=== PATIENT | male | born 1995 | race Caucasian/White ===

== ENCOUNTER 2020-12-09 10:39 | Emergency (ER) | payer OTHER, SELFPAY ==
[2020-12-09 10:55] VITALS: BP 132/84; PULSE 96; RESP 18; TEMP 37.3; O2SAT 100
--- NOTE | 2020-12-09 11:23 | ED.URI ---
HPI - URI/Sore Throat General Chief Complaint: Upper Respiratory Infection Stated Complaint: fever History of Present Illness HPI Narrative: Patient states that he has been feeling really tired and has been having a fever for the past 3-4 days and he has been having chills. He has a headache and feeling tired. Patient denies feeling nauseasted and or dirrhea. Patient has no othere symptoms no sob, no sore throat just fever and weakness and being tired. Related Data Allergies Allergy/AdvReac Type Severity Reaction Status Date / Time cephalexin Allergy Unknown Hives Verified 12/09/20 10:59 erythromycin base Allergy Unknown Hives Verified 12/09/20 10:59 Review of Systems Review of Systems: Narrative: CONSTITUTIONAL: complains of fever, chills, or sweats. EYES: Denies visual changes, redness, or discharge. ENT: Denies rhinorrhea, congestion, sore throat, or otalgia. CARDIOVASCULAR:Denies chest pain, palpitations, or edema. RESPIRATORY: Denies cough or dyspnea. GASTROINTESTINAL: Denies abdominal pain, nausea, vomiting, or diarrhea. GENITOURINARY: Denies dysuria or hematuria. SKIN:[Denies rash or itching. MUSCULOSKELETAL:Denies back pain, joint pain, or myalgia. NEUROLOGIC: Denies headache, numbness, or okay reports weakness. PSYCHIATRIC:Denies anxiety or depression PMFSH Social History Social History Smoking status: Smoker, status unknown Alcohol intake: never Gender identity (if verbalized by the patient): Male Comments At time as signature, I have reviewed and agree with nursing past medical, social, surgical and family history. Please see nursing chart for further information. There is no relevant family history pertinent to the presenting complaint. Exam Narrative: Exam Narrative: GENERAL:ILL -appearing, well-nourished, and in no acute distress. HEAD:Normocephalic, atraumatic. EYES: PERRLA and EOMI. ENT: Nares clear, no rhinorrhea or epistaxis. Mucous membranes moist. Pharyngeal erythema NECK: Supple. CHEST: Clear to auscultation. No respiratory distress. HEART: Regular rate and rhythm. No murmur heard. Normal peripheral pulses. ABDOMEN: Soft, nontender, nondistended, normal active bowel sounds. EXTREMITIES: Normal range of motion. No edema. SKIN: Warm, dry, no rash. NEURO: No focal deficits. Alert and oriented x3. 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 negative covid, negative strep I reviewed Vital Signs Vital signs: Vital Signs Temperature 99.1 F 12/09/20 10:55 Pulse Rate 96 12/09/20 10:55 Respiratory Rate 18 12/09/20 10:55 Blood Pressure 132/84 12/09/20 10:55 Pulse Oximetry 100 12/09/20 10:55 Temperature 99.1 F 12/09/20 10:55 Pulse Rate 96 12/09/20 10:55 Respiratory Rate 18 12/09/20 10:55 Blood Pressure 132/84 12/09/20 10:55 Pulse Oximetry 100 12/09/20 10:55 MDM - URI/Sore Throat Differential Diagnosis Differential diagnosis: Likely upper respiratory infection, otitis media, sinusitis, viral infection, bronchitis, influenza and pharyngitis Lab Data Labs: Lab Results 12/09/20 Range/Units 11:05 POC SARS CoV-2 Ag Negative (Negative) Strep Screen Presumptive Negative *(Reference Range: Negative)* Discharge Plan Discharge Clinical Impression: Viral infection Upper respiratory infection Qualifiers: URI type: unspecified URI Qualified Code(s): J06.9 - Acute upper respiratory infection, unspecified Patient Disposition: Home, Self-Care Condition: Guarded Prognosis Instructions: Antibiotic Form, Viral Syndrome (ED) Additional Instructions: Viral illness may last between 7-12days; antibiotic is NOT recommended at this time. Recommend antihistamine such as Benadryl at night time and Claritin/Zyrtec/Coby during the day Also, recommend symptomatic treatment includes: rest, fluids, and increase humidity of the air at home. Recommend Acetaminophen or nonsteroidal anti-inflam
== END 2020-12-09 11:45 | disposition home or self-care (01) ==
PROVIDERS: Emergency Provider Nurse Practitioner Family
DX: B34.9 Viral infection, unspecified (principal); Z20.822 Contact with and (suspected) exposure to COVID-19
CPT/HCPCS: 87081; 87426; 87880; 99213; C9803; G0463

== ENCOUNTER 2020-12-23 09:03 | Emergency (ER) | payer OTHER, SELFPAY ==
[2020-12-23 09:12] VITALS: BP 114/78; PULSE 99; RESP 16; TEMP 37.4; O2SAT 99
--- NOTE | 2020-12-23 10:07 | ED.URI ---
HPI - URI/Sore Throat General Chief Complaint: Upper Respiratory Infection Stated Complaint: Fever/cough/chills Time Seen by Provider: 12/23/20 10:10 Source: patient Mode of arrival: ambulatory Limitations: no limitations History of Present Illness HPI Narrative: Bairon Albert is a 25-year-old male who [facility] with a fever 102, nausea, diarrhea, like cough symptoms that started this morning states that he was came here because his boss has cancer and is immunocompromised Related Data Allergies Allergy/AdvReac Type Severity Reaction Status Date / Time cephalexin Allergy Unknown Hives Verified 12/23/20 09:39 erythromycin base Allergy Unknown Hives Verified 12/23/20 09:39 Review of Systems Review of Systems: Narrative: CONSTITUTIONAL: Has fever, chills, sweats. EYES: Denies visual changes, redness, discharge. ENT: Denies rhinorrhea, has congestion, sore throat, otalgia. CARDIOVASCULAR: Denies chest pain, palpitations, edema. RESPIRATORY: Denies dyspnea, wheezing, has cough GASTROINTESTINAL: Denies abdominal pain, has nausea, vomiting, has diarrhea. GENITOURINARY: Denies dysuria, hematuria, abnormal discharge SKIN: Denies rash or itching. NEUROLOGIC: Denies numbness, or focal weakness. PSYCHIATRIC: Denies anxiety or depression. PMFSH Past Medical History Medical History No acute medical problems Family History Family History (Updated 12/23/20 @ 10:11 by Veronica Ramirez CNP) Other No acute medical problems Social History Social History (Updated 12/23/20 @ 10:11 by Veronica Ramirez CNP) Smoking status: Current some day smoker Alcohol intake: never Gender identity (if verbalized by the patient): Male Comments At time of signature, I agree with nursing past medical, surgical, social and family history. There is no relevant family history pertinent to the presenting complaint. Exam Narrative: Exam Narrative: GENERAL: This is a well-nourished, well-developed patient, in mild distress. HEAD: normocephalic, atraumatic. EYES: Sclera clear/white. Vision is grossly intact. EARS: External ears normal, . Hearing grossly intact. NOSE: External nose normal without nasal discharge, nares without redness, no rhinorrhea. THROAT: Mucous membranes moist, posterior pharynx erythema NECK: Neck supple, non-tender CARDIOVASCULAR: Tachycardic and rhythm without murmurs, gallops, or rubs. RESPIRATORY: Clear to auscultation. Breath sounds equal bilaterally. No wheezes, rales, or rhonchi. GASTROINTESTINAL: Abdomen soft, mild-tender, SKIN: warm, intact with no suspicious lesions or rash, good texture and turgor. NEURO: awake, alert, and oriented to person, place and time. There were no obvious focal neurologic abnormalities. Steady gait EXTREMITIES: Normal range of motion. BACK: Nontender without deformity Course Course Emergency Course: Patient comes with fever nausea diarrhea-like cough states feels achy, symptoms started this morning Rapid Covid is positive Started on prednisone, cough medication, Zofran Vital Signs Vital signs: Vital Signs Temperature 99.3 F 12/23/20 09:12 Pulse Rate 99 12/23/20 09:12 Respiratory Rate 16 12/23/20 09:12 Blood Pressure 114/78 12/23/20 09:12 Pulse Oximetry 99 12/23/20 09:12 Temperature 99.3 F 12/23/20 09:12 Pulse Rate 99 12/23/20 09:12 Respiratory Rate 16 12/23/20 09:12 Blood Pressure 114/78 12/23/20 09:12 Pulse Oximetry 99 12/23/20 09:12 MDM - URI/Sore Throat Differential Diagnosis Differential diagnosis: Likely upper respiratory infection, sinusitis, viral infection, pharyngitis and other (Covid) Lab Data Labs: Lab Results 12/23/20 Range/Units 09:29 POC SARS CoV-2 Ag Positive (Negative) Critical Care Time Critical Care Time Critical Care Time: No Discharge Plan Discharge Clinical Impression: COVID Patient Disposition: Home, Self-Care Conditio
== END 2020-12-23 10:23 | disposition home or self-care (01) ==
PROVIDERS: Emergency Provider Nurse Practitioner
DX: U07.1 COVID-19 (principal); F17.200 Nicotine dependence, unspecified, uncomplicated
CPT/HCPCS: 87426; 99213; C9803; G0463

== ENCOUNTER 2023-08-17 09:42 | Emergency (ER) | payer OTHER, SELFPAY ==
--- NOTE | 2023-08-17 09:48 | ED.URI ---
HPI - URI/Sore Throat General Chief Complaint: Upper Respiratory Infection Stated Complaint: fever Time Seen by Provider: 08/17/23 10:10 Source: patient and RN notes reviewed Mode of arrival: ambulatory Limitations: no limitations History of Present Illness HPI Narrative: 28-year-old male presents with concern for 4 day history of fever, body aches, chills, cough, nausea, headache, nasal congestion or rhinorrhea. Reports he taking ibuprofen. MD elicited complaint: cough and sore throat Related Data Allergies Allergy/AdvReac Type Severity Reaction Status Date / Time cephalexin Allergy Unknown Hives Verified 08/17/23 10:02 erythromycin base Allergy Unknown Hives Verified 08/17/23 10:02 Review of Systems Review of Systems: CONSTITUTIONAL: Reports malaise, chills, sweats, or fever. EYES: Denies visual changes, redness, or discharge. ENT: Reports rhinorrhea, congestion CARDIOVASCULAR: Denies chest pain, palpitations, or edema. RESPIRATORY: Reports cough. Denies dyspnea. GASTROINTESTINAL: Denies abdominal pain. Reports nausea, vomiting, diarrhea SKIN: Denies rash or itching. MUSCULOSKELETAL: Reports myalgia. NEUROLOGIC: Reports headache. All systems reviewed & are unremarkable except as noted in HPI and below PMFSH Past Medical History Medical History No acute medical problems Family History Family History (Updated 12/23/20 @ 10:11 by Veronica Ramirez, POWER SEWING MACHINE OPERATOR) Other No acute medical problems Social History Social History (Updated 12/23/20 @ 10:11 by Veronica Ramirez, BIMAL) Smoking status: Current some day smoker Alcohol intake: never Gender identity (if verbalized by the patient): Male Comments At time of signature, agree with nursing past medical, surgical, social and family history. There is no relevant family history pertinent to the presenting complaint Exam Narrative: GENERAL: Well-appearing, well-nourished, and in no acute distress. HEAD: Normocephalic EYES: PERRLA, conjunctivae clear ENT: Nares clear, turbinates edematous and erythematous, clear discharge. Mucous membranes moist. TM pearly casas with dull light reflex bilaterally; no tragal tenderness. Oropharynx not erythematous without lesions. Tonsils not enlarged and without exudate, no drooling, no hoarseness, no trismus, uvula midline. NECK: Supple. No lymphadenopathy CHEST: Clear to auscultation, breath sounds equal. No wheezing, rhonchi, rales, or stridor. No respiratory distress, speaks in full sentences. HEART: Regular rate and rhythm. No murmur heard. SKIN: Warm, dry, no rash. NEURO: Alert and oriented x3. PSYCH: Normal mood and affect Course Course Emergency Course: Patient is aware of diagnosis, understands and agrees to treatment plan. Anticipatory guidance given. Patient agrees to follow-up as directed and is aware of reasons to seek care at the emergency department. Portions of this record may have been created with voice recognition software Level of Care: Express Care Visit Vital Signs Vital signs: Vital Signs Temperature 99.9 F H 08/17/23 10:03 Pulse Rate 80 08/17/23 10:03 Respiratory Rate 16 08/17/23 10:03 Blood Pressure 128/73 08/17/23 10:03 Pulse Oximetry 100 08/17/23 10:03 Oxygen Delivery Room Air 08/17/23 10:03 Temperature 99.9 F H 08/17/23 10:03 Pulse Rate 80 08/17/23 10:03 Respiratory Rate 16 08/17/23 10:03 Blood Pressure 128/73 08/17/23 10:03 Pulse Oximetry 100 08/17/23 10:03 Oxygen Delivery Room Air 08/17/23 10:03 Reviewed. MDM - URI/Sore Throat MDM Narrative Medical decision making narrative: Differential diagnosis considered: Mo virus, strep pharyngitis, allergic rhinitis, upper respiratory tract infection, sinusitis, rhinosinusitis, nasopharyngitis. viral pharyngitis, otitis media, otitis externa, pneumonia, bronchitis, viral cough syndrome, viral syndrome, and influenza. Exam findings show
[2023-08-17 10:03] VITALS: BP 128/73; PULSE 80; RESP 16; TEMP 37.7; O2SAT 100
== END 2023-08-17 10:23 | disposition home or self-care (01) ==
PROVIDERS: Emergency Provider Nurse Practitioner
DX: J10.1 Influenza due to other identified influenza virus with other respiratory manifestations (principal); F17.200 Nicotine dependence, unspecified, uncomplicated; Z20.822 Contact with and (suspected) exposure to COVID-19
CPT/HCPCS: 87426; 87804; 99213; G0463

== ENCOUNTER 2024-02-09 16:54 | Emergency (ER) | payer OTHER, SELFPAY ==
--- NOTE | 2024-02-09 16:59 | ED.GENADULT ---
HPI - General Adult General Chief complaint: Urogenital-Male Stated complaint: sti check Time Seen by Provider: 02/09/24 16:59 Source: patient Mode of arrival: ambulatory Limitations: no limitations History of Present Illness HPI narrative: 28-year-old male patient presents to the [facility] with request for STI check. Patient states he is in a monogamous relationship with the live-in girlfriend and she was recently diagnosed with Mycoplasma genitalium and he was told he needed to get tested. Patient has no symptoms today. Denies fevers, body aches or chills. Related Data Home Medications Medication Instructions Recorded Confirmed infliximab 100 mg intravenous See Rx Instructions .Route .COMPLEX 02/09/24 02/09/24 solution (Remicade) Allergies Allergy/AdvReac Type Severity Reaction Status Date / Time cephalexin AdvReac Mild Hives Verified 02/09/24 17:00 erythromycin base AdvReac Mild Hives Verified 02/09/24 17:00 Review of Systems Review of Systems: CONSTITUTIONAL: Denies fever, chills, or sweats. EYES: Denies visual changes, redness, or discharge. ENT: Denies rhinorrhea, congestion, sore throat, or otalgia. CARDIOVASCULAR: Denies chest pain, palpitations, or edema. RESPIRATORY: Denies cough or dyspnea. GASTROINTESTINAL: Denies abdominal pain, nausea, vomiting, or diarrhea. GENITOURINARY: Denies dysuria or hematuria. SKIN: Denies rash or itching. MUSCULOSKELETAL: Denies back pain, joint pain, or myalgia. NEUROLOGIC: Denies headache, numbness, or weakness. PSYCHIATRIC: Denies anxiety or depression. [facility] Past Medical History Medical History No acute medical problems Family History Family History Other No acute medical problems Social History Social History Smoking status: Current some day smoker Alcohol intake: never Gender identity (if verbalized by the patient): Male Comments At the time of my signature I agree with nursing past medical history, surgical, social, and family history. There is no relevant family history pertinent to the presenting complaint. Exam Narrative: GENERAL: Well-appearing, well-nourished, and in no acute distress. HEAD: Normocephalic, atraumatic. EYES: PERRLA and EOMI. ENT: Nares clear, no rhinorrhea or epistaxis. Mucous membranes moist. NECK: Supple. No lymphadenopathy CHEST: Clear to auscultation. No respiratory distress. HEART: Regular rate and rhythm. No murmur heard. Normal peripheral pulses. ABDOMEN: Soft, nontender, nondistended, normal active bowel sounds. EXTREMITIES: Normal range of motion. No edema. SKIN: Warm, dry, no rash. NEURO: No focal deficits. Alert and oriented x3. Course Course Level of Care: Express Care Visit Vital Signs Vital signs: Vital Signs Temperature 36.8 C 02/09/24 17:07 Pulse Rate 71 02/09/24 17:07 Respiratory Rate 18 02/09/24 17:07 Blood Pressure 116/67 02/09/24 17:07 Pulse Oximetry 100 02/09/24 17:07 Oxygen Delivery Room Air 02/09/24 17:07 Temperature 36.8 C 02/09/24 17:07 Pulse Rate 71 02/09/24 17:07 Respiratory Rate 18 02/09/24 17:07 Blood Pressure 116/67 02/09/24 17:07 Pulse Oximetry 100 02/09/24 17:07 Oxygen Delivery Room Air 02/09/24 17:07 Vital signs reviewed. Medical Decision Making MDM Narrative Medical decision making narrative: Plan of care for today is to obtain a urine culture and send out for testing along with Trichomonas gonorrhea and chlamydia. Discussed with patient that we will go ahead and treat him today and per the CDC guidelines for the treatment of this bacteria would be a dose of doxycycline 100 mg orally 2 times a day for 7 days and moxifloxacin 400 mg orally once a day for 7 days. Discussed with him that if there is any treatment change we will call him once we
[2024-02-09 17:07] VITALS: BP 116/67; PULSE 71; RESP 18; TEMP 36.8; O2SAT 100
[2024-02-09 19:37] LABS: Trichomonas Vag PCR NOT DETECTED (NOT DETECTE)
[2024-02-09 20:01] LABS: Chlamydia trachomatis NOT DETECTED (NOT DETECTE); Neisseria gonorrhoeae PCR NOT DETECTED (NOT DETECTE)
== END 2024-02-09 17:45 | disposition home or self-care (01) ==
PROVIDERS: Emergency Provider Nurse Practitioner Family
DX: Z20.2 Contact with and (suspected) exposure to infections with a predominantly sexual mode of transmission (principal); F17.200 Nicotine dependence, unspecified, uncomplicated
CPT/HCPCS: 87086; 87491; 87591; 87661; 99213; G0463

== ENCOUNTER 2024-03-25 11:19 | Emergency (ER) | payer OTHER, SELFPAY ==
[2024-03-25 11:40] VITALS: BP 117/82; PULSE 65; RESP 16; TEMP 36.9; O2SAT 100
--- NOTE | 2024-03-25 11:54 | ED.EYEPROB ---
HPI - Eye Problem General Chief complaint: Eye Problems Stated complaint: pink eye Source: patient Mode of arrival: ambulatory Limitations: no limitations History of Present Illness HPI Narrative: 28-year-old male presented for complaint of left eye redness and irritation, onset yesterday. He removed his contact lens yesterday but reports waking this morning with even more redness and clear drainage. Reports light sensitivity. His contact lenses are to be changed monthly, with one day of rest each week. Denies significant eye pain, vision changes, purulent discharge, headache or vomiting. No treatment travel pta. chief complaint: eye pain Related Data Home Medications Medication Instructions Recorded Confirmed infliximab 100 mg intravenous See Rx Instructions .Route .COMPLEX 02/09/24 03/25/24 solution (Remicade) Allergies Allergy/AdvReac Type Severity Reaction Status Date / Time cephalexin AdvReac Mild Hives Verified 03/25/24 11:43 erythromycin base AdvReac Mild Hives Verified 03/25/24 11:43 Review of Systems Review of Systems: CONSTITUTIONAL: Denies body aches, fever, chills EYES:Endorses redness clear drainage, photophobia left eye Denies purulent drainage, FB sensation, swelling, visual changes ENT: Denies rhinorrhea, congestion, sore throat, or otalgia. CARDIOVASCULAR: Denies chest pain, palpitations RESPIRATORY: Denies cough or dyspnea. SKIN: Denies rash, itching, or wounds. NEUROLOGIC: Denies headache, numbness, tingling, or weakness. All systems reviewed & are unremarkable except as noted in HPI and below PMFSH Past Medical History Medical History No acute medical problems Family History Family History Other No acute medical problems Social History Social History Smoking status: Current some day smoker Alcohol intake: never Gender identity (if verbalized by the patient): Male Comments At time of signature, I have reviewed and agree with nursing past medical, surgical, social and family history unless otherwise noted. Please see nursing chart for further information. There is no relevant family history pertinent to the presenting complaint Exam Narrative: GENERAL: Well-appearing HEAD: Normocephalic, atraumatic. EYES: Left conjunctival injection, clear drainage; no eye lid swelling. PERRLA, EOMI. Lid eversion shows no fb. ENT: Mucous membranes pink and moist. No rhinorrhea. TMs normal bilaterally. Throat normal. Uvula midline. CHEST: Clear to auscultation. HEART: Regular rate and rhythm. SKIN: Warm, dry, no rash. Normal skin turgor. NEURO: No focal deficits. Alert and oriented x3 Course Course Emergency Course: Patient is aware of diagnosis, understands and agrees to treatment plan. Anticipatory guidance given. Patient agrees to follow-up as directed and is aware of reasons to seek care at the emergency department. Portions of this record may have been created with voice recognition software Level of Care: Express Care Visit Vital Signs Vital signs: Vital Signs Temperature 98.5 F 03/25/24 11:40 Pulse Rate 65 03/25/24 11:40 Respiratory Rate 16 03/25/24 11:40 Blood Pressure 117/82 03/25/24 11:40 Pulse Oximetry 100 03/25/24 11:40 Oxygen Delivery Room Air 03/25/24 11:40 Temperature 98.5 F 03/25/24 11:40 Pulse Rate 65 03/25/24 11:40 Respiratory Rate 16 03/25/24 11:40 Blood Pressure 117/82 03/25/24 11:40 Pulse Oximetry 100 03/25/24 11:40 Oxygen Delivery Room Air 03/25/24 11:40 Procedures FB Removal Eye Foreign Body #1: Foreign Body Removal Date: 03/25/24 Location: eye (L) Topical anesthetic used: tetracaine Evidence of corneal penetration: No Procedure performed under: other (fernando lamp) Patient tolerated p
== END 2024-03-25 12:21 | disposition home or self-care (01) ==
PROVIDERS: Emergency Provider Nurse Practitioner Family
DX: H10.9 Unspecified conjunctivitis (principal); F17.200 Nicotine dependence, unspecified, uncomplicated
CPT/HCPCS: 99213; A9270; G0463

== ENCOUNTER 2024-12-07 09:51 | Emergency (ER) | payer OTHER, SELFPAY ==
--- NOTE | ~2024-12-07 | XR_ITS ---
HISTORY: left sided low back pain with left sciatica COMPARISON: None TECHNIQUE: 4 view lumbar spine. FINDINGS: Lumbar vertebral bodies are normally aligned. There are 5 non-rib bearing lumbar vertebral bodies. Trace degenerative change at the level of L5/S1 with minimal posterior compression of the inferior ve rtebral body. Remaining disc spaces and vertebral body heights are otherwise well maintained. Grade 1 retrolisthesis of L5 onto S1 is also noted as is facet hypertrophy. Paraspinal soft tissues are unremarkable Straightening of the normal lordotic curvature is identified within the lumbar spine possibly muscula r in origin. IMPRESSION: Trace degenerative disease at the level of L5/S1, as detailed above. No acute compression fracture. Reviewed, dictated and finalized at location A.
--- NOTE | 2024-12-07 09:53 | ED.BACK ---
HPI - Back Pain/Injury General Chief Complaint: Back Pain/Injury Stated Complaint: back injury Time Seen by Provider: 12/07/24 09:53 Source: patient Mode of arrival: ambulatory Limitations: no limitations History of Present Illness HPI Narrative: Bairon is a 29 year old male patient presenting to the clinic today with c/o back pain x 1 day. He reports he was rough-housing with his daughters and throwing them on the couch and he injured his back. States the pain is to the left lower back with radiation of pain down the left leg. Pain is sharp in nature. Rates his pain currently 8/10. Did take hydrocodone last night for pain and that helped him sleep and help pain. Denies any loss of bowel or bladder. Denies any saddle anesthesia or numbness. Related Data Home Medications ?Medication ?Instructions ?Recorded ?Confirmed ?Last Taken ?Type infliximab 100 mg intravenous See Rx Instructions .Route .COMPLEX 02/09/24 03/25/24 Unknown History solution (Remicade) Allergies Allergy/AdvReac Type Severity Reaction Status Date / Time cephalexin Allergy Mild Hives Verified 12/07/24 10:04 erythromycin base Allergy Mild Hives Verified 12/07/24 10:04 Review of Systems Review of Systems: Pertinent positives per HPI. Patient denies any fever, chills, rash, headache, visual changes, dizziness, cough, runny nose, sore throat, shortness of breath, chest pain, palpitations, nausea, vomiting, diarrhea, constipation, abdominal pain, or any urinary issues. PMFSH Past Medical History Medical History No acute medical problems Family History Family History Other No acute medical problems Social History Social History Smoking status: Current some day smoker Alcohol intake: never Gender identity (if verbalized by the patient): Male Comments At the time of my signature, I reviewed and agree with the nursing past medical, surgical, social, and family history. There is no relevant family history pertinent to the patient complaint. Exam Narrative: General: Well-developed, well nourished, in no apparent distress Head: Normocephalic, atraumatic. Cardio: Regular rate and rhythm, s1 and s2 normal, no murmur appreciated. Resp: Clear to auscultation bilaterally, no rhonchi, rales, wheezing or rubs. Musculoskeletal: No deformity, non-tender to palpation over the lumbar spine, pain to the left lower paraspinous musculature/ back with movement, cautious gait and movement, muscle strength strong and equal in BLE. SLT positive at approximately 60? on the left, patellar reflexes 2/4 bilaterally, negative foot drop, cautious gait and station Course Course Emergency Course: Portions of this record may have been created with voice recognition software. Level of Care: Express Care Visit Vital Signs Vital signs: Vital Signs Temperature 36.3 C L 12/07/24 10:02 Pulse Rate 67 12/07/24 10:02 Respiratory Rate 18 12/07/24 10:02 Blood Pressure 124/84 12/07/24 10:02 Pulse Oximetry 99 12/07/24 10:02 Oxygen Delivery Room Air 12/07/24 10:02 Temperature 36.3 C L 12/07/24 10:02 Pulse Rate 67 12/07/24 10:02 Respiratory Rate 18 12/07/24 10:02 Blood Pressure 124/84 12/07/24 10:02 Pulse Oximetry 99 12/07/24 10:02 Oxygen Delivery Room Air 12/07/24 10:02 Vital signs reviewed MDM - Back Pain/Injury MDM Narrative Medical decision making narrative: At the time of visit patient is resting comfortably on the exam table. Patient appears to be nontoxic. Diagnostics: X-ray of the lumbar spine was performed and is negative for any sign of fracture or malalignment. Plan: I suspect patient has a low back strain with lower extremity radiculopathy. Prescription for Medrol Dosepak and Medrol Dosepak was sent to the pharmacy. Patient has history of Crohn's-will not do NSAIDs. Supportive measures were discussed with the patient and they voiced understanding discharge instructions and agrees to treatment plan. Return precautions reviewed Differential Diagnosis Differential diagnosis: Likely lumbar radiculopathy, sciatica, strain of lumbar region, discitis and other (Slipped disc, herniation, vertebral fracture) Imaging Data Radiologist's impression: ITS Impressions Lumbar Spine X-Ray 12/07/24 10:48 IMPRESSION: Trace degenerative disease at the level of L5/S1, as detailed above. No acute compression fracture. Discharge Plan Discharge Clinical Impression: Acute low back pain Qualifiers: Back pain laterality: left Sciatica presence: with sciatica Sciatica laterality: sciatica of left side Qualified Code(s): M54.42 - Lumbago with sciatica, left side Patient Disposition: Home Condition: Stable Instructions: Antibiotic Form, Low Back Strain (ED), Acute Low Back Pain (ED), Lower Back Exercises (ED) Additional Instructions: X-rays negative for any sign of fracture or malalignment. Take any prescription medication only as prescribed-Medrol Dosepak and cyclobenzaprine Be mindful of sedation precautions given to you if taking a muscle relaxer. May use heat or ice to the affected area Consider massage or chiropractor adjustment if this was discussed with provider May use blue emu, lidocaine patches, or asper cream to affected area- do not apply heat or ice directly over cream- can cause burn. Complete appropriate back stretching exercises. Follow up with your PCP in 3-5 days if symptom persist. Patient Language: Belarusian Prescriptions: New cyclobenzaprine 10 mg tablet 10 mg PO Q8H PRN (Reason: muscle spasm) 7 Days Qty: 21 0RF methylprednisolone [Medrol (Cole)] 4 mg tablets,dose pack See Rx Instructions PO .COMPLEX Qty: 21 0RF Rx Instructions: orally per package directions No Action infliximab [Remicade] 100 mg Recon Soln See Rx Instructions .ROUTE .COMPLEX Rx Instructions: 100 mg intravenously every two months Follow-up/Referrals: UNKNOWN,DOCTOR [Primary Care Provider] - Stand Alone Forms: Work/School Release IP Time of Disposition: 10:51 Quality NIHSS Nursing Documentation ED NIHSS nursing documentation: reviewed/agree
--- OUTSIDE RECORDS SUMMARY | 2024-12-07 09:54 | XMS_ITS | Encounter Summary ---
Author Organization [facility] Address [address] [place] [address] Phone Care Team Providers Care Payroll Consultant Name Role Phone Janet Hickman Primary Care Provider [phone] Brady Ramachandran MD Unavailable [phone] Nata Mar RN Unavailable Unavailable Wing [facility]rit[facility] Unavailable Unavaila ble Encounter Details Date Type Department Care Team (Late st Contact Info) Description 11/03/2024 Results Follow-Up [facility] [address] [place] [address] [place] [address] Brady Ramachandran MD [address] [place] [address] Comprehensive metabolic panel, CBC with auto differential, CRP (acute phase), Additional followed-up results: 2 Social History Tobacco Use Types Packs/Day Years Used Date Smoking Tobacco: Former Cigarettes Smokeless Tobacco: Never Comments:Social smoker Marijuana OASIS D0700: Social Isolation Answer Da te Recorded Frequency of experiencing loneliness or isolatio n Never 09/10/2024 Social Connection and Isolat ion Panel [NHANES] Answer Date Recorded In a typical week, how many times do you talk on the phone with family, friends, or neighbors? More than three times a week 10/17/2022 How often do you get togethe r with friends or relatives? More than three times a week 10/17/2022 How often do you attend chur ch or yarsanism services? Never 10/17/2022 Do you belong to any clubs o r organizations such as methodist groups, unions, fraternal or athletic groups, or school groups? No 10/17/2022 How often do you attend meet ings of the clubs or organizations you belong to? Never 10/17/2022 Are you , , di vorced, , never , or living with a partner? Never 10/17/2022 AUDIT-C Answer Date Recorded Q1: How often do you have a drink containing alc ohol? 2-3 times a week 04/22/2024 Q2: How many drinks containi ng alcohol do you have on a typical day when you are drinking? 1 or 2 04/22/2024 Frequency of Binge Drinking Not on file 04/04 Overall Financial Resource Strain (CARDIA) Answe r Date Recorded How hard is it for you to pa y for the very basics like food, housing, medical care, and heating? Not hard at all 10/17/2022 PHQ-2 Answer Date Recorded PHQ-2 Total Score (If total score is 3 or more points, staff should administer the PHQ-9) 0 10/16/2022 Hunger Vital Sign Answer Date Recorded Within the past 12 months, y ou worried that your food would run out before you got the money to buy more. Never true 10/18/19 23 Within the past 12 months, t he food you bought just didn't last and you didn't have money to get more. Never true 10/17/2022 PRAPARE - Transportation Answer Date Re corded In the past 12 months, has l ack of transportation kept you from medical appointments or from getting medications? No 10/02 In the past 12 months, has l ack of transportation kept you from meetings, work, or from getting things needed for daily living? No 10/17/2022 Housing Stability Vital Sign Answer Owen e Recorded In the last 12 months, was t here a time when you were not able to pay the mortgage or rent on time? No 10/17/2022 In the last 12 months, how many places have you lived? 1 10/17/2022 In the last 12 months, was t here a time when you did not have a steady place to sleep or slept in a intermediate (including now)? No 10/17/2022 Personal Safety Answer Date Recorded Have you ever been in or are you currently in a harmful physical or emotional relationship or is someone making you feel afraid or unsafe? Denies 04/22/2024 Sex and Gender Information Value Date Recorded Sex Assigned at Not on file Legal Sex Male 1:48 PM CDT Gender Identity Not on file Sexual Orientation Not on file documented as of this encounter Miscellaneous Notes * Result Encounter Note - Brady Ramachandran MD - 11/03/2024 12:40 AM CDT Test results are within the normal range. documented in this encounter Plan of Treatment Not on file documented as of this encounter Visit Diagnoses Not on filedocumented in this encounter Care Teams Payroll Consultant Relationship Specialty Start Date End Date Janet Hickman PA PCP - General Family Medicine 09/05/22 Brady Ramachandran MD [address] [address] PCP - Home Infusion Attending Gastroenterology 10/28/24 Nata Mar, RN Home Infusion Nursing 11/03/24 Wing Pritchard, [facility] Pharmacist Pharmacy 11/16/24 documented as of this encounter
--- OUTSIDE RECORDS SUMMARY | 2024-12-07 09:54 | XMS_ITS | Referral Summary ---
Author Organization [facility] Address [address] [place] [address] Care Team Providers Care Meat Boner Name Role Phone Janet Hickman Primary Care Provider [phone] Brady Ramachandran MD Unavailable [phone] Nata Mar RN Unavailable Unavailable [facility] Unavailable Unavaila ble Encounters Date Type Department Care Team Description 11/28/2024 Orders Only [facility] G[facility]enterology [address]th [place] [address] [place] [phone] Jennifer García RN Crohn's disease of both small and large intestine without complication (HCC) (Primary Dx); High risk medications (not anticoagulants) long-term use; Routine health maintenance 11/03/2024 Home Infusion [facility] [address] [place] [address] Peggy Ibanez RN 11/03/2024 Orders Only [facility] [address] [place] [address] [facility] francisca 11/03/2024 Home Infusion [facility] [address] [place] [address] [facility] francisca 11/03/2024 Telephone [facility] Gastroenterology [address] 12th [place] [address] [place] [phone] Jennifer García RN Med Management- Infusion over 1 hr 11/03/2024 Results Follow-Up [facility] Gastroenterology [facility] [facility] [address] [facility] [address]th [place] [address] [place] [address] Brady Ramachandran MD Comprehensive metabolic panel, CBC with auto differential, CRP (acute phase), Additional followed-up results: 2 11/03/2024 9:45 AM CDT Office Visit [facility] Gastroenterology [address] 12th [place] [address] [place] [address] Brady Ramachandran MD Crohn's disease of both small and large intestine without complication (HCC) (Primary Dx); High risk medications (not anticoagulants) long-term use 10/30/2024 12:20 PM CDT - 10/30/2024 11:59 PM CDT Hospital Encounter [address] [address] Discharge Disposition: Discharge to home or self care 10/30/2024 12:00 PM CDT Home Care Visit [place] [address] [address] [place] [address] Nata Mar RN SN INFUSION TREATMENT ROOM 09/24/2024 1:00 PM CDT Home Care Visit [address] [place] [address] Nata Mar RN SN INFUSION TREATMENT ROOM 09/10/2024 12:35 PM CDT - 09/10/2024 11:59 PM CDT Hospital Encounter [facility] [address] [place] [address] Discharge Disposition: Discharge to home or self care 09/10/2024 Plan of Care Documentation [address] [place] [address] 09/10/2024 Orders Only [facility] [address] [place] [phone] [facility] 09/10/2024 12:00 PM CDT Home Care Visit [facility] [address] [place] [id number] Rikki Weber RN SN NON OASIS START OF CARE 09/09/2024 Orders Only [facility] [address] [place] [address] [facility] 09/09/2024 Orders Only [facility] [address] [place] [address] [facility] 09/09/2024 Orders Only [facility] [address] [place] [address] [facility] 09/09/2024 Travel from Last 3 Months Allergies Active Allergy Reactions Criticality Noted Date Comments Cephalexin Hives Medium 09/05/2022 Medications inFLIXimab-dyyb (Inflectra) 100 mg injectionIndica tions:Reinducti on as of ~ 08/15/2024 Infuse 40 mL (400 mg total) into a venous catheter at week 0, week 2, week 6, and then every 8 weeks. (5 mg/kg dose). Site of Care: [facility] ([facility] order in Epic under 'Procedures' tab). Active sodium chloride 0.9% injectionIndica tions:line care Infuse 10 mL into a venous catheter as needed for line care Active acetaminophen (TYLENOL) 325 mg tabletIndicatio ns:infusion pre-medication Take 2 tablets (650 mg total) by mouth as needed for pain Take by mouth 30 minutes prior to infusion. 5 11/29/19 25 Discontinu ed(Patient Reported) diphenhydrAMINE (BENADRYL) 25 mg capsuleIndicati ons:infusion pre-medication Take 1 tablet/capsul e (25 mg total) by mouth as needed for itching Take by mouth 30 minutes prior to infusion. 5 11/29/19 25 Discontinu ed(Patient Reported) Active Problems Problem Noted Date Diagnosed Date High risk medications (not anticoagulants) long- term use 10/07/2023 Overview (10/16/2023): Received Humira in the past but stopped voluntarily. Started Inflectra 10 mg/kg every 8 weeks. Crohn's disease of both smal l and large intestine without complication 11/02/2022 Overview (10/31/2024): Year of diagnosis: 2022. Year symptoms began: 2022. Phenotype: Inflammatory (B1) without perianal disease. Distribution: ileocolonic (L3) without upper GI disease (L4). Extraintestinal manifestations: none. Complications: none. Prior treatments: Humira (November 2022-Apr 2023). Current treatment: Inflectra (Apr 2023). Prior surgeries: none. Endoscopies: 10/20/2022 EGD/colonoscopy showed normal esophagus with mild inflammation in the stomach and diffuse inflammation in the duodenum. Colonoscopy showed patchy inflammation in small and large intestines, with severe stenosis in IC valve. Rectal inflammation also noted. Colonoscopy 04/2024 showed mucosal remission. Imagin11/02/2022 CTAP showed diffuse wall thickening and hyperemia of the terminal ileum, spanning a length of approximally 10 cm. This is associated with reactive lymphadenopathy in the ileocolic mesentery. Findings are highly suspicious for Crohn disease. No evidence of bowel obstruction, perforation, or other complications noted. The cecum appears slightly thickened, and the appendix is borderline normal in caliber. This is likely reactive. No abnormalities are seen in the colon or rectum. Assessment & Plan (11/02/2022 7:49 AM CDT): Patient was admitted to the hospital October 2022 with abdominal pain, rectal bleeding, diarrhea, as well as nausea and vomiting. CT scan showed moderate severe thickening of the cecum and moderate thickening of the terminal ileum as well as reactive lymph nodes in the right lower quadrant and mesentery. Stool lactoferrin was positive, stool culture was negative. ESR and CRP were positive. Patient was started on IV antibiotics. Patient underwent EGD and colonoscopy by Dr. Allred with gastritis and erosive duodenitis, stenosis at the IC valve that could not be traversed, erosions, erythema, pseudopolyps and shallow ulcerations involving the IC valve, cecum, and terminal ileum. There was also erosions and erythema in the distal rectum. Pathology consistent with mildly active chronic ileitis and colitis. Since discharge from the hospital, overall he has been doing well but patient states he is having low grade fevers and abdominal pain. He denies any vomiting or any other complaints. -advised patient to go back to the ER for severe abdominal pain, nausea, vomiting, or rectal bleeding -avoid NSAIDs -we will order labs and stool studies for further evaluation -we will start steroid taper -we will refer to IBD Clinic at [facility], patient will likely need be started on biologics Gastritis 11/02/2022 Assessment & Plan (11/02/2022 7:44 AM CDT): EGD by Dr. Allred with gastritis and erosive duodenitis. -continue PPI b.i.d. for 8 weeks -avoid NSAIDs and marijuana (patient has stopped marijuana since discharge from the hospital) Laceration of left hand without foreign body 06/2022 Resolved Problems Problem Noted Date Diagnosed Date Resolved Date Adalimumab (Humira) long-term use 10/07/2023 10/07/2023 Abdominal pain 10/16/2022 12/25/2022 Nausea and vomiting 10/16/2022 12/26/19 23 Immunizations Immunization Administration Dates Next Due Influenza, Unspecified 03/04/2022(Deferred: Gavi ent Refused) Tdap 08/24/2022 Social History Tobacco Use Types Packs/Day Years Used Date Smoking Tobacco: Former Cigarettes Smokeless Tobacco: Never Tobacco Cessation:Counseling Given: Not Answered Comments:Social smoker Marijuana OASIS D0700: Social Isolation [...] 10/17/2022 How often do you attend chur or restorationist services? Never 10/17/2022 Do you belong to any clubs o r organizations such as shinto groups, unions, fraternal or athletic groups, or [...] place to sleep or slept in a usp (including now)? No 10/17/2022 Personal Safety Answer [...] on file Sexual Orientation Not on file Last Filed Vital Signs Vital Sign Reading Time Taken Comments Blood Pressure 125/75 11/03/2024 9:39 AM CDT Pulse 86 11/03/2024 9:39 AM CDT Temperature 36.2 C (97.1 F) 10/30/2024 2:45 PM CDT Respiratory Rate 16 11/03/2024 9:39 AM CDT Oxygen Saturation 98% 11/03/2024 9:39 AM CDT Inhaled Oxygen Concentration - - Weight 83.9 kg (185 lb) 11/03/2024 9:39 AM CDT Height 177.8 cm (5' 10) 11/03/2024 9:39 AM CDT Body Mass Index 26.54 11/03/2024 9:39 AM CDT Plan of Treatment Not on file Medical Devices Implanted Type Area Advertising Assistant Manager Device Identifier Shelf Expiration Date Model / Serial / Lot Mashable Neuragen 4mm 3cm Semipermeable Peripheral Guide Nerve Bovine [id number] - [id number] Implanted:Qty: 1 on 10/05/2022 by Jose F Ellison MD at [facility] Revla Flatora Jose De Jesus [id number] / / [id number] Procedures Procedure Name Priority Date/Time Associated Diagnosis Comments EGFR Routine 10/30/2024 12:20 PM CDT DIFFERENTIAL AUTO Routine 10/30/2024 12: 20 PM CDT CRP (ACUTE PHASE) Routine 10/30/2024 12: 20 PM CDT CBC WITH AUTO DIFFERENTIAL Routine 10/30/2024 12:20 PM CDT COMPREHENSIVE METABOLIC PANEL Routine 10/30/2024 12:20 PM CDT CRITICAL RESULT CALLBACK CHEMISTRY Routine 09/10/2024 12:30 PM CDT EGFR Routine 09/10/2024 12:30 PM CDT DIFFERENTIAL AUTO Routine 09/10/2024 12: 30 PM CDT CRP (ACUTE PHASE) Routine 09/10/2024 12: 30 PM CDT CBC WITH AUTO DIFFERENTIAL Routine 09/10/2024 12:30 PM CDT GLUCOSE, RANDOM (OUTREACH) Routine 09/10/2024 12:30 PM CDT COMPREHENSIVE METABOLIC PANEL WITHOUT GLUCOSE (OUTREACH) Routine 09/10/2024 12:30 PM CDT from Last 3 Months Results * eGFR (10/30/2024 12:20 PM CDT) eGFR >90 >=60 mL/min/1. 73 m2 Comment: Interpretive Data Reference Interval Normal >/= 90 mL/min/1.73m2 Mildly decreased* 60 - 89 mL/min/1.73m2 Mildly to moderately decreased 45 - 59 mL/min/1.73m2 Moderately to severely decreased 30 - 44 mL/min/1.73m2 Severely decreased 15 - 29 mL/min/1.73m2 Kidney Failure < 15 mL/min/1.73m2 *Relative to young adult level Estimated glomerular filtration rate is determined by the 2020 CKD-EPI equation recommended by the National Kidney Foundation (A Unifying Approach to GFR Estimation: Recommendations of the NKF-ASK Task Force on Reassessing the Inclusion of Race in Diagnosing Kidney Disease, JASN 2020). The CKD-EPI equation should not be used for patients with unstable renal function and has not been validated in children and those over 70. Current interpretive data was last reviewed 2021. Blood 10/30/2024 12:2 0 PM CDT 10/30/2024 9:27 PM CDT Brady Ramachandran MD LAB BLOOD ORDERABLES F inal Result [facility] [address] Department [place] [address] * Differential, auto (10/30/2024 12:20 PM CDT) Neutrophil abs 3.40 1.50 - 6.50 K/cumm Imm gran abs 0.02 0.00 - 0.10 K/cumm [facility] Lymphocyte abs 2.41 0.80 - 3.30 K/cumm [facility] Monocyte abs 0.61 0.20 - 0.80 K/cumm [facility] Eosinophil abs 0.13 0.00 - 0.50 K/cumm [facility] Basophil abs 0.07 0.00 - 0.10 K/cumm [facility] Neutrophil pct 51.1 % [facility] Comment: Interpretive Data Percent cell count reference ranges are not reported, since discordance with absolute values may lead to misinterpretation of CBC data. Current Interpretive Data was last revised on 2017. Imm gran pct 0.3 % [facility] Comment: Interpretive Data Percent cell count reference ranges are not reported, since discordance with absolute values may lead to misinterpretation of CBC data. Current Interpretive Data was last revised on 2017. Lymphocyte pct 36.3 % [facility] Comment: Interpretive Data Percent cell count reference ranges are not reported, since discordance with absolute values may lead to misinterpretation of CBC data. Current Interpretive Data was last revised on 2017. Monocyte pct 9.2 % [facility] Comment: Interpretive Data Percent cell count reference ranges are not reported, since discordance with absolute values may lead to misinterpretation of CBC data. Current Interpretive Data was last revised on 2017. Eosinophil pct 2.0 % [facility] Comment: Interpretive Data Percent cell count reference ranges are not reported, since discordance with absolute values may lead to misinterpretation of CBC data. Current Interpretive Data was last revised on 2017. Basophil pct 1.1 % [facility] Comment: Interpretive Data Percent cell count reference ranges are not reported, since discordance with absolute values may lead to misinterpretation of CBC data. Current Interpretive Data was last revised on 2017. Blood 10/30/2024 12:2 0 PM CDT 10/30/2024 8:59 PM CDT Brady Ramachandran MD LAB BLOOD ORDERABLES F inal Result [facility] [address] Department [place] [address] * CBC with auto differential (10/30/2024 12:20 PM CDT) WBC 6.64 3.80 - 9.90 K/cumm Hgb 14.7 13.0 - 17.5 g/dL [facility] Hct 45.3 38.9 - 50.3 % [facility] Plt 258 150 - 400 K/cumm [facility] MPV 9.7 9.1 - 12.3 fL [facility] RBC 5.04 4.30 - 5.80 M/cumm [facility] MCV 89.9 81.3 - 96.4 fL [facility] MCH 29.2 27.1 - 33.3 pg [facility] MCHC 32.5 32.3 - 35.7 g/dL [facility] RDW CV 12.8 11.1 - 14.9 % [facility] RDW SD 41.9 35.7 - 48.1 fL [facility] NRBC abs 0.00 0.00 - 0.01 K/cumm [facility] Blood 10/30/2024 12:2 0 PM CDT 10/30/2024 8:59 PM CDT Brady Ramachandran MD LAB BLOOD ORDERABLES F inal Result Performing Organization Address City/[facility]/ZIP Co de Phone Number [facility] [place] [address] Department [place] [address] * CRP (acute phase) (10/30/2024 12:20 PM CDT) CRP <3.0 <=10.0 mg/L Blood 10/30/2024 12:2 0 PM CDT 10/30/2024 8:58 PM CDT Brady Ramachandran MD LAB BLOOD ORDER[place] [address] [address] Department [place] [address] * (ABNORMAL) Comprehensive metabolic panel (10/30/2024 12:20 PM CDT) Sodium 139 135 - 145 mmol/L Potassium, pl 4.0 3.3 - 4.9 mmol/L [facility] Chloride 105 97 - 110 mmol/L [facility] CO2 21(L) 22 - 32 mmol/L [facility] Anion gap 13 2 - 15 mmol/L [facility] BUN 15 6 - 25 mg/dL [facility] Creatinine 1.01 0.80 - 1.30 mg/dL [facility] Glucose 80 70 - 199 mg/dL [facility] Comment: Interpretive Data Fasting glucose >/= 126 mg/dl is diagnostic for diabetes. Fasting is defined as no caloric intake for at least 8 hours. Fasting glucose between 100 mg/dl to 125 mg/dl is diagnostic of prediabetes. In a patient with classic symptoms of hyperglycemia or hyperglycemic crisis, a random glucose >/= 200 mg/dl is diagnostic for diabetes. In the absence of unequivocal hyperglycemia, results should be confirmed by repeat testing. The classification and Diagnosis of Diabetes Diabetes Care 202; 46: S19-S40. Current interpretive data was last revised 2022. Calcium 8.9 8.5 - 10.3 mg/dL [facility] Bilirubin, total 1.1 0.1 - 1.2 mg/dL [facility] Protein, pl 7.0 6.5 - 8.5 g/dL [facility] Albumin 4.3 3.5 - 5.0 g/dL [facility] Alk phos 79 40 - 130 Units/L [facility] ALT 10 7 - 55 Units/L [facility] AST 27 10 - 50 Units/L [facility] Blood 10/30/2024 12:2 0 PM CDT 10/30/2024 8:58 PM CDT Brady Ramachandran MD LAB BLOOD ORDERABLES F inal Result [facility] [address] [facility] Department [place] [address] * (ABNORMAL) Glucose, random (Outreach) (09/10/2024 12:30 PM CDT) Glucose 50(C) 70 - 199 mg/dL Comment: Glycolysis suspected; suggest sending a casas top tube. Interpretive Data Fasting glucose >/= 126 mg/dl is diagnostic for diabetes. Fasting is defined as no caloric intake for at least 8 hours. Fasting glucose between 100 mg/dl to 125 mg/dl is diagnostic of prediabetes. In a patient with classic symptoms of hyperglycemia or hyperglycemic crisis, a random glucose >/= 200 mg/dl is diagnostic for diabetes. In the absence of unequivocal hyperglycemia, results should be confirmed by repeat testing. The classification and Diagnosis of Diabetes Diabetes Care 2021; 46: S19-S40. Current interpretive data was last revised 2022. Blood 09/10/2024 12:3 0 PM CDT 09/10/2024 3:57 PM CDT us Brady Ramachandran MD LAB BLOOD ORDERABLES F inal Result Performing Organization Address City/[facility] Co de Phone Number [facility] DE LUNAH [facility] Department [place] [address] * eGFR (09/10/2024 12:30 PM CDT) eGFR 88 >=60 mL/min/1. 73 m2 Comment: Interpretive Data Reference Interval Normal >/= 90 mL/min/1.73m2 Mildly decreased* 60 - 89 mL/min/1.73m2 Mildly to moderately decreased 45 - 59 mL/min/1.73m2 Moderately to severely decreased 30 - 44 mL/min/1.73m2 Severely decreased 15 - 29 mL/min/1.73m2 Kidney Failure < 15 mL/min/1.73m2 *Relative to young adult level Estimated glomerular filtration rate is determined by the 2020 CKD-EPI equation recommended by the National Kidney Foundation (A Unifying Approach to GFR Estimation: Recommendations of the NKF-ASK Task Force on Reassessing the Inclusion of Race in Diagnosing Kidney Disease, JASN 2020). The CKD-EPI equation should not be used for patients with unstable renal function and has not been validated in children and those over 70. Current interpretive data was last reviewed 2021. Blood 09/10/2024 12:3 0 PM CDT 09/10/2024 4:41 PM CDT us Brady Ramachandran MD LAB BLOOD ORDERABLES F inal Result [facility] Department [place] [address] * (ABNORMAL) Differential, auto (09/10/2024 12:30 PM CDT) Neutrophil abs 6.86(H) 1.50 - 6.50 K/cumm Imm gran abs 0.04 0.00 - 0.10 K/cumm [facility] Lymphocyte abs 2.22 0.80 - 3.30 K/cumm [facility] Monocyte abs 0.75 0.20 - 0.80 K/cumm [facility] Eosinophil abs 0.18 0.00 - 0.50 K/cumm [facility] Basophil abs 0.06 0.00 - 0.10 K/cumm [facility] Neutrophil pct 67.8 % [facility] Comment: Interpretive Data Percent cell count reference ranges are not reported, since discordance with absolute values may lead to misinterpretation of CBC data. Current Interpretive Data was last revised on 2017. Imm gran pct 0.4 % [facility] Comment: Interpretive Data Percent cell count reference ranges are not reported, since discordance with absolute values may lead to misinterpretation of CBC data. Current Interpretive Data was last revised on 2017. Lymphocyte pct 22.0 % [facility] Comment: Interpretive Data Percent cell count reference ranges are not reported, since discordance with absolute values may lead to misinterpretation of CBC data. Current Interpretive Data was last revised on 2017. Monocyte pct 7.4 % [facility] Comment: Interpretive Data Percent cell count reference ranges are not reported, since discordance with absolute values may lead to misinterpretation of CBC data. Current Interpretive Data was last revised on 2017. Eosinophil pct 1.8 % [facility] Comment: Interpretive Data Percent cell count reference ranges are not reported, since discordance with absolute values may lead to misinterpretation of CBC data. Current Interpretive Data was last revised on 2017. Basophil pct 0.6 % [facility] Comment: Interpretive Data Percent cell count reference ranges are not reported, since discordance with absolute values may lead to misinterpretation of CBC data. Current Interpretive Data was last revised on 2017. Blood 09/10/2024 12:3 0 PM CDT 09/10/2024 3:57 PM CDT Brady Ramachandran MD LAB BLOOD ORDERABLES F inal Result Performing Organization Address City/[facility]/ZIP Co de Phone Number [facility] Department [place] [address] * Critical Result Callback Chemistry (09/10/2024 12:30 PM CDT) Date Notified [id number] Time Notified 2054 [facility] TestName Glucose [facility] Called/Read Back Janet Bermeo [facility] Credentials PharmD MEGAN [facility] Called By SB [facility] Blood 09/10/2024 12:3 0 PM CDT 09/10/2024 4:40 PM CDT rBady Ramachandran MD LAB BLOOD ORDERABLES F inal Result [facility] Department [place] [address] * (ABNORMAL) Comprehensive metabolic panel, without glucose (Outreach) (09/10/2024 12:30 PM CDT) Pathologist [facility] Sodium 146(H) 135 - 145 mmol/L Potassium, pl 3.8 3.3 - 4.9 mmol/L [facility] Chloride 104 97 - 110 mmol/L [facility] CO2 28 22 - 32 mmol/L [facility] Anion gap 14 2 - 15 mmol/L [facility] BUN 10 6 - 25 mg/dL [facility] Creatinine 1.15 0.80 - 1.30 mg/dL [facility] Calcium 9.7 8.5 - 10.3 mg/dL [facility] Protein, pl 8.2 6.5 - 8.5 g/dL [facility] Albumin 4.8 3.5 - 5.0 g/dL [facility] Bilirubin, total 0.9 0.1 - 1.2 mg/dL [facility] Alk phos 119 40 - 130 Units/L [facility] AST 40 10 - 50 Units/L [facility] ALT 27 7 - 55 Units/L [facility] Blood 09/10/2024 12:3 0 PM CDT 09/10/2024 3:57 PM CDT us Brady Ramachnadran MD LAB BLOOD ORDERABLES F inal Result [facility] Department [place] [address] * (ABNORMAL) CBC with auto differential (09/10/2024 12:30 PM CDT) [facility] WBC 10.11(H) 3.80 - 9.90 K/cumm Hgb 15.3 13.0 - 17.5 g/dL [facility] Hct 44.0 38.9 - 50.3 % [facility] Plt 309 150 - 400 K/cumm [facility] MPV 9.8 9.1 - 12.3 fL [facility] RBC 5.22 4.30 - 5.80 M/cumm [facility] MCV 84.3 81.3 - 96.4 fL [facility] MCH 29.3 27.1 - 33.3 pg [facility] MCHC 34.8 32.3 - 35.7 g/dL [facility] RDW CV 12.7 11.1 - 14.9 % [facility] RDW SD 39.1 35.7 - 48.1 fL [facility] NRBC abs 0.00 0.00 - 0.01 K/cumm [facility] Blood 09/10/2024 12:3 0 PM CDT 09/10/2024 3:57 PM CDT Brady Ramachandran MD LAB BLOOD ORDERABLES F inal Result [facility] Department [place] [address] * CRP (acute phase) (09/10/2024 12:30 PM CDT) CRP 3.4 <=10.0 mg/L Blood 09/10/2024 12:3 0 PM CDT 09/10/2024 3:57 PM CDT Brady Ramachandran MD LAB BLOOD ORDERABLES F inal Result Performing Organization Address City/[facility] Co de Phone Number [facility] Department [place] [address] from Last 3 Months Insurance [employer] OPEN ACCESS [place] [employer] [place] [employer] INSURANCE WORKERS COMPENSATION GENERIC TRAVELERS INSURANCE WORKERS COMPENSATION GENERIC WORKERS COMPENSATION GENERIC Advance Directives For more information, please contact: [phone] * Full Code (Latest Code Status on File) Date Activated Date Inactivated Comments 04/22/2024 10:07 AM 04/22/2024 3:59 PM * Full Code Date Activated Date Inactivated Comments 10/20/2022 1:29 PM 10/22/2022 6:36 PM * Full Code Date Activated Date Inactivated Comments 10/16/2022 9:35 PM 10/20/2022 1:29 PM Care Teams Meat Boner Relationship Specialty Start Date End Date Janet Hickman PA PCP - General Family Medicine 09/05/22 Brady Ramachandran MD [address] [facility] [address] DIV [place] [address] PCP - Home Infusion Attending Gastroenterology 10/28/24 Nata Mar, RN Home Infusion Nursing 11/03/24 Wing Pritchard, [facility] Pharmacist Pharmacy 11/16/24
--- OUTSIDE RECORDS SUMMARY | 2024-12-07 09:54 | XMS_ITS | Clinical Summary ---
Author Organization [facility] Address [facility] [place] [address] Care Team Providers Care Exchange Teller Name Role Phone Janet Hickman PA-C Primary Care Provider [phone] Allergies Active Allergy Reactions Criticality Noted Date Comments Cephalexin Unknown 10/16/2022 Medications HYDROcodone-acet aminophen (NORCO) 5-325 MG tabletIndication s:Acute Pain < 3 Day Supply Take 1 tablet by mouth every 6 (six) hours as needed for Pain. Indications : Acute Pain < 3 Day Supply 10 tablet 02/10/2024 Active Social History Tobacco Use Types Packs/Day Years Used Date Smoking Tobacco: Never Smokeless Tobacco: Never Alcohol Use Standard Drinks/Week Comments Not Currently 0 (1 standard drink = 0.6 oz pur e alcohol) Sex and Gender Information Value Date Recorded Sex Assigned at Not on file Legal Sex Male 11:14 AM CDT Gender Identity Not on file Sexual Orientation Not on file Last Filed Vital Signs Vital Sign Reading Time Taken Comments Blood Pressure 100/58 02/10/2024 1:00 AM CDT Pulse 60 02/10/2024 1:00 AM CDT Temperature 36.9 C (98.4 F) 02/10/2024 1:00 AM CDT Respiratory Rate 16 02/10/2024 1:00 AM CDT Oxygen Saturation 97% 02/10/2024 1:05 AM CDT Inhaled Oxygen Concentration - - Weight 74.8 kg (165 lb) 02/09/2024 8:41 PM CDT Height 177.8 cm (5' 10) 02/09/2024 8:41 PM CDT Body Mass Index 23.68 02/09/2024 8:41 PM CDT Plan of Treatment Health Maintenance Due Date Last Done Comments Annual Physical 1998 COVID-19 Vaccine (2023- season) 2024 DTaP, Tdap and Td Vaccines (8 - Td or Tdap) 08/24/2032 08/24/2022, 09/21/2009, 12/03/2000, Additional history exists Hepatitis B Vaccines Completed 04/05/1996, 1995, 1995 Hepatitis C Completed 12/12/2023, 12/12/2023 HPV Vaccines Aged Out No longer eligi ble based on patient's age to complete this topic Meningococcal B Vaccine Aged Out No l onger eligible based on patient's age to complete this topic Meningococcal Vaccine Aged Out No gisel carlyle eligible based on patient's age to complete this topic Pneumococcal Vaccine: Pediatrics (0 to 5 Years) and At-Risk Patients (6 to 49 Years) Aged Out No longer eligible based on patient's age to complete this topic RSV Immunizations Under 20 Months Aged Out No longer eligible based on patient's age to complete this topic Insurance [facility] Care Teams Exchange Teller Relationship Specialty Start Date End Date Janet Hickman PA-C [address] [place] [address] PCP - General PHYSICIAN MOTOR POLARIZER 10/16/22
--- OUTSIDE RECORDS SUMMARY | 2024-12-07 09:54 | XMS_ITS ---
Author Organization [facility] Address [address] [place] [address] Care Team Providers Care Sales Director Name Role Phone Janet Hickman Primary Care Provider [phone] Brady Ramachandran MD Unavailable [phone] Nata Mar RN Unavailable Unavailable Wing Pritchard [facility] Unavailable Unavaila ble [facility] Specialty Therapies - INFLECTRA 400 mg IV EVERY 8 WEEKS Status:Enrolled (Active) Start date:10/13/2024 Enrollment date:10/13/2024 Related program episode:Home Infusion (Active) Overview Cutover Complete Case Team Name Relationship Phone Nata Mar RN Home Infusion Nursing Wing Pritchard [facility](Responsible Staff) Pharma cist Continued Care and Services Coordination This section includes services coordinated for [facility] Specialty Therapies - INFLECTRA 400 mg IV EVERY8 WEEKS. Home Medical Care Name Services Phone [facility] Home Infusion Therapy Home Infusion and Inje ction
--- OUTSIDE RECORDS SUMMARY | 2024-12-07 09:54 | XMS_ITS | Clinical Summary ---
Author Organization [facility] the [facility] Address [address] [place] [address] Care Team Providers Care High Density Press Operator Name Role Phone Janet Hickman Primary Care Provider [phone] Brady Ramachandran MD Unavailable [phone] Nata Mar RN Unavailable Unavailable Wing Pritchard [facility] Unavailable Unavaila ble Allergies Active Allergy Reactions Criticality Noted Date Comments Cephalexin Hives Medium 09/05/2022 Medications inFLIXimab-dyyb (Inflectra) 100 mg injectionIndica tions:Reinducti on as of ~ 08/15/2024 Infuse 40 mL (400 mg total) into a venous catheter at week 0, week 2, week 6, and then every 8 weeks. (5 mg/kg dose). Site of Care: [facility] Home Care ([facility] order in Psychiatric under 'Procedures' tab). Active sodium chloride 0.9% injectionIndica tions:line care Infuse 10 mL into a venous catheter as needed for line care 5 Active acetaminophen (TYLENOL) 325 mg tabletIndicatio ns:infusion pre-medication Take 2 tablets (650 mg total) by mouth as needed for pain Take by mouth 30 minutes prior to infusion. 5 11/29/19 25 Discontinu ed(Patient Reported) diphenhydrAMINE (BENADRYL) 25 mg capsuleIndicati ons:infusion pre-medication Take 1 tablet/capsul e (25 mg total) by mouth as needed for itching Take by mouth 30 minutes prior to infusion. 11/29/19 25 Discontinu ed(Patient Reported) Active Problems [...] -we will refer to IBD Clinic at [facility], patient will likely need be started on [...] 12/25/2022 Nausea and vomiting 10/16/2022 12/26/19 23 Encounters Date Type Department Care Team Description 11/28/2024 Orders Only [facility] Gastroenterology [facility] [address] [place] [address] [place] [address] Jennifer García RN Crohn's disease of both small and large intestine without complication (HCC) (Primary Dx); High risk medications (not anticoagulants) long-term use; Routine health maintenance 11/03/2024 9:45 AM CDT Office Visit [facility] Gastroenterology [facility] [address]th [place] [address] [place] [address] Brady Ramachandran MD Crohn's disease of both small and large intestine without complication (HCC) (Primary Dx); High risk medications (not anticoagulants) long-term use 11/03/2024 Home Infusion [facility] Home Infusion Therapy [address] [place] [address] Peggy Ibanez RN 11/03/2024 Orders Only [facility] [address] [place] [address] Wnig Pritchard, [facility] 11/03/2024 Home Infusion [facility] Home Infusion Therapy [address] [place] [address] Wing Pritchard, [facility] 11/03/2024 Telephone [facility] Gastroenterology [address] [facility] [address]th [place] [address] [place] [address] Jennifer García RN Med Management- Infusion over 1 hr 11/03/2024 Results Follow-Up [facility] Gastroenterology [address] [facility] [address]th [place] [address] [place] [phone] Brady Ramachandran MD Comprehensive metabolic panel, CBC with auto differential, CRP (acute phase), Additional followed-up results: 2 10/30/2024 12:20 PM CDT - 10/30/2024 11:59 PM CDT Hospital Encounter [address] [address] Discharge Disposition: Discharge to home or self care 10/30/2024 12:00 PM CDT Home Care Visit [address] [place] [address] [address] [place] [address] Nata Mar RN SN INFUSION TREATMENT ROOM 09/24/2024 1:00 PM CDT Home Care Visit [address] [place] [address] Nata Mar RN SN INFUSION TREATMENT ROOM 09/10/2024 12:35 PM CDT - 09/10/2024 11:59 PM CDT Hospital Encounter [facility] [address] [place] [address] Discharge Disposition: Discharge to home or self care 09/10/2024 12:00 PM CDT Home Care Visit [address] [place] [address] Rikki Weber RN SN NON OASIS START OF CARE 09/10/2024 Plan of Care Documentation [address] [place] [address] 09/10/2024 Orders Only [facility] [address] [place] [address] Wing Pritchard, [facility] 09/09/2024 Orders Only [facility] [address] [place] [address] Wing Pritchard, [facility] 09/09/2024 Orders Only [facility] [address] [place] [address] Wing Pritchard, [facility] 09/09/2024 Orders Only [facility] [address] [place] [address] Wing Pritchard, [facility] 09/09/2024 Travel from Last 3 Months Immunizations Immunization Administration Dates Next Due Influenza, Unspecified 03/04/2022(Deferred: Gavi ent Refused) Tdap 08/24/2022 Surgical History Surgery Date Site/Laterality Comments FINGER SURGERY 10/05/2022 Left left index radial nerve repair COLONOSCOPY UPPER GASTROINTESTINAL ENDOSCOPY WISDOM TOOTH EXTRACTION Medical History Medical History Date Comments GERD (gastroesophageal reflux disease) Anxiety Gastritis Crohn's disease (HCC) Family History Medical History Relation Name Comments No Known Problems Father No Known Problems Mother Relation Name Status Comments Father Alive Mother Alive Social History Tobacco Use Types Packs/Day Years [...] often do you attend chur ch or jewish services? Never 10/17/2022 Do you belong to any clubs o r organizations such as sabianist groups, unions, fraternal or athletic groups, or [...] place to sleep or slept in a chcf (including now)? No 10/17/2022 Personal Safety Answer [...] on file Sexual Orientation Not on file Obstetrics History Last Filed Vital Signs Vital Sign Reading [...] 11/03/2024 9:39 AM CDT Plan of Treatment Health Maintenance Due Date Last Done Comments Hepatitis C Screening 1995 Regular Well Visit/Exam 18-64 2013 Pneumococcal vaccine <65 (1 of 2 - PCV) 2014 Zoster Vaccine (1 of 2) 2014 Depression Screening 10/17/2023 10/16/2022, 09/06/19 Influenza Vaccine (Season Ended) 2025 DTaP/Tdap/Td Vaccine (8 - Td or Tdap) 08/24/2032 08/24/2022, 09/21/2009, 12/03/2000, Additional history exists Varicella Vaccines Completed 11/29/2009, 09/01/1996 Hepatitis B Screening Completed 12/12/2023 , 04/05/1996, 1995, Additional history exists HPV Vaccines Aged Out No longer eligi ble based on patient's age to complete this topic Medical Devices Implanted Type Area Communication Assistant Device Identifier Shelf Expiration Date Model / Serial / Lot Cydan Neuragen 4mm 3cm Semipermeable Peripheral Guide Nerve Bovine [id number] - [id number] Implanted:Qty: 1 on 10/05/2022 by Jose F Ellison MD at [facility] [employer] [id number] / / [id number] Procedures Procedure Name Priority Date/Time Associated Diagnosis [...] of Race in Diagnosing Kidney Disease, JASN 202). The CKD-EPI equation should not be used for patients with unstable renal function and has not been validated in children and those over 70. Current interpretive data was last reviewed 2021. Blood 10/30/2024 12:2 0 PM CDT 10/30/2024 9:27 PM CDT Brady Ramachandran MD LAB BLOOD ORDERABLES F inal Result [facility] [address] Department [place] [address] * Differential, auto (10/30/2024 12:20 PM CDT) Pathologist [facility] Neutrophil abs 3.40 1.50 - 6.50 K/cumm [...] [facility] Neutrophil pct 51.1 % [facility] Comment: Interpretive [...] revised on 2017. Lymphocyte pct 36.3 % [facility] Comment: Interpretive Data Percent cell count reference [...] MD LAB BLOOD ORDERABLES F inal Result [facility] [address] Department [place] [address] * CBC with auto differential (10/30/2024 12:20 PM CDT) WBC 6.64 3.80 - 9.90 K/cumm Hgb 14.7 13.0 - 17.5 g/dL [facility] Hct 45.3 38.9 - 50.3 % [facility] Plt 258 150 - 400 K/cumm [facility] MPV 9.7 9.1 - 12.3 fL [facility] RBC 5.04 4.30 - 5.80 M/cumm [facility] MCV 89.9 81.3 - 96.4 fL CERNER [...] ORDERABLES F inal Result Performing Organization Address City/[facility]/ZIP Co de Phone Number [facility] [address] [address] [employer] [place], [place] [id number] * CRP (acute phase) (10/30/2024 12:20 PM CDT) Pathologist [facility] CRP <3.0 <=10.0 mg/L Blood 10/30/2024 12:2 0 PM CDT 10/30/2024 8:58 PM CDT Brady Ramachandran MD LAB BLOOD ORDERABLES F inal Result Performing Organization Address [facility] Co de Phone Number [facility] [address] [address] Department of [employer] [place], [place] [id number] * (ABNORMAL) Comprehensive metabolic panel (10/30/2024 12:20 PM CDT) Pathologist [facility] Sodium 139 135 - 145 mmol/L Potassium, pl 4.0 3.3 - 4.9 mmol/L [facility] Chloride 105 97 - 110 mmol/L [facility] CO2 21(L) 22 - 32 mmol/L [facility] Anion gap 13 2 - 15 mmol/L [facility] BUN 15 6 - 25 mg/dL [facility] Creatinine 1.01 0.80 - 1.30 mg/dL [facility] Glucose 80 70 - 199 mg/dL [facility] Comment: Interpretive Data Fasting glucose >/= 126 [...] 0 PM CDT 10/30/2024 8:58 PM CDT us Brady Ramachandran MD LAB BLOOD ORDERABLES F inal Result [facility] [address] Department [place] [address] * (ABNORMAL) Glucose, random (Outreach) (09/10/2024 12:30 PM CDT) [facility] Signature Glucose 50(C) 70 - 199 mg/dL Comment: [...] ORDERABLES F inal Result Performing Organization Address City/[facility]/ZIP Co de Phone Number [facility] Department [place] [address] * eGFR (09/10/2024 12:30 PM CDT) eGFR [...] 0 PM CDT 09/10/2024 4:41 PM CDT Brady Ramachandran MD LAB BLOOD ORDERABLES F inal Result Performing Organization Address City/[facility]/ZIP Co de Phone Number [facility] Department [place] [address] * (ABNORMAL) Differential, auto (09/10/2024 12:30 PM CDT) Neutrophil abs 6.86(H) 1.50 - 6.50 K/cumm Imm gran abs 0.04 0.00 - 0.10 K/cumm [facility] Lymphocyte abs 2.22 0.80 - 3.30 K/cumm [facility] Monocyte abs 0.75 0.20 - 0.80 K/cumm [facility] Eosinophil abs 0.18 0.00 - 0.50 K/cumm [facility] Basophil abs 0.06 0.00 - 0.10 K/cumm [facility] Neutrophil pct 67.8 % [facility] Comment: Interpretive Data Percent cell count reference ranges are not reported, since discordance with absolute values may lead to misinterpretation of CBC data. Current Interpretive Data was last revised on 2017. Imm gran pct 0.4 % [facility] Comment: Interpretive Data Percent cell count reference ranges are not reported, since discordance with absolute values may lead to misinterpretation of CBC data. Current Interpretive Data was last revised on 2017. Lymphocyte pct 22.0 % [facility] Comment: Interpretive Data Percent cell count reference ranges are not reported, since discordance with absolute values may lead to misinterpretation of CBC data. Current Interpretive Data was last revised on 2017. Monocyte pct 7.4 % [facility] Comment: Interpretive Data Percent cell count reference ranges are not reported, since discordance with absolute values may lead to misinterpretation of CBC data. Current Interpretive Data was last revised on 2017. Eosinophil pct 1.8 % [facility] Comment: Interpretive Data Percent cell count reference ranges are not reported, since discordance with absolute values may lead to misinterpretation of CBC data. Current Interpretive Data was last revised on 2017. Basophil pct 0.6 % [facility] Comment: Interpretive Data Percent cell count reference ranges are not reported, since discordance with absolute values may lead to misinterpretation of CBC data. Current Interpretive Data was last revised on 2017. Blood 09/10/2024 12:3 0 PM CDT 09/10/2024 3:57 PM CDT Brady Ramachandran MD LAB BLOOD ORDERABLES F inal Result [facility] [place] [address] * Critical Result Callback Chemistry (09/10/2024 12:30 PM CDT) Date Notified [id number] Time Notified 2054 [facility] TestName Glucose [facility] Called/Read Back Janet Bermeo [facility] Credentials PharmD [facility] Called By SB [facility] Blood 09/10/2024 12:3 0 PM CDT 09/10/2024 4:40 PM CDT us Brady Ramachandran MD LAB BLOOD ORDERABLES F inal Result Performing Organization Address [facility] Co de Phone Number [facility] [place] [address] * (ABNORMAL) Comprehensive metabolic panel, without glucose (Outreach) (09/10/2024 12:30 PM CDT) Sodium 146(H) 135 - 145 mmol/L Potassium, pl 3.8 3.3 - 4.9 mmol/L [facility] Chloride 104 97 - 110 mmol/L [facility] CO2 28 22 - 32 mmol/L [facility] Anion gap 14 2 - 15 mmol/L [facility] BUN 10 6 - 25 mg/dL [facility] Creatinine 1.15 0.80 - 1.30 mg/dL [facility] Calcium 9.7 8.5 - 10.3 mg/dL [facility] Protein, pl 8.2 6.5 - 8.5 g/dL [facility] Albumin 4.8 3.5 - 5.0 g/dL [facility] Bilirubin, total 0.9 0.1 - 1.2 mg/dL [facility] Alk phos 119 40 - 130 Units/L [facility] AST 40 10 - 50 Units/L [facility] ALT 27 7 - 55 Units/L [facility] Blood 09/10/2024 12:3 0 PM CDT 09/10/2024 3:57 PM CDT us Brady Ramachandran MD LAB BLOOD ORDERABLES F inal Result Performing Organization Address [facility]/ZIP Co de Phone Number [facility] Department [place] [address] * (ABNORMAL) CBC with auto differential (09/10/2024 12:30 PM CDT) Pathologist [facility] WBC 10.11(H) 3.80 - 9.90 K/cumm Hgb 15.3 13.0 - 17.5 g/dL [facility] Hct 44.0 38.9 - 50.3 % [facility] Plt 309 150 - 400 K/cumm [facility] MPV 9.8 9.1 - 12.3 fL [facility] RBC 5.22 4.30 - 5.80 M/cumm [facility] MCV 84.3 81.3 - 96.4 fL [facility] MCH 29.3 27.1 - 33.3 pg [facility] MCHC 34.8 32.3 - 35.7 g/dL [facility] RDW CV 12.7 11.1 - 14.9 % [facility] RDW SD 39.1 35.7 - 48.1 fL [facility] NRBC abs 0.00 0.00 - 0.01 K/cumm [facility] Blood 09/10/2024 12:3 0 PM CDT 09/10/2024 3:57 PM CDT us Brady Ramachandran MD LAB BLOOD ORDERABLES F inal Result Performing Organization Address City/[facility]/ZIP Co de Phone Number [facility] Department [place] [address] * CRP (acute phase) (09/10/2024 12:30 PM CDT) Pathologist [facility] CRP 3.4 <=10.0 mg/L Blood 09/10/2024 12:3 0 PM CDT 09/10/2024 3:57 PM CDT Brady Ramachandran MD LAB BLOOD ORDERABLES F inal Result [facility] Department [place] [address] from Last 3 Months Insurance [facility] H[facility]/PPO Address[facility] [address] [place] [address] [facility] H[facility]/PPO Address: [address] [address] [place] [address] [employer]IST [facility] HMO/PPO Address: [address] [address] [place] [address] [employer] COMPENSATION GENERIC [employer] WORK[employer] COMPENSATION GENERIC WORKERS COMPENSATION GENERIC Advance Directives For more information, please contact: [phone] * Full Code (Latest Code Status on File) Date Activated Date Inactivated Comments 04/22/2024 10:07 AM 04/22/2024 3:59 PM * Full Code Date Activated Date Inactivated Comments 10/20/2022 1:29 PM 10/22/2022 6:36 PM * Full Code Date Activated Date Inactivated Comments 10/16/2022 9:35 PM 10/20/2022 1:29 PM Care Teams High Density Press Operator Relationship Specialty Start Date End Date Janet Hickman PA PCP - General Family Medicine 09/05/22 Brady Ramachandran MD [address] [facility] [address] [place] [address] PCP - Home Infusion Attending Gastroenterology 10/28/24 Nata Mar, TONI Home Infusion Nursing 11/03/24 Wing Pritchard, [facility] Pharmacist Pharmacy 11/16/24
--- OUTSIDE RECORDS SUMMARY | 2024-12-07 09:54 | XMS_ITS ---
Author Organization [facility] the [facility] Address [address] [place] [address] Care Team Providers Care Manager Shop Name Role Phone Janet Hickman Primary Care Provider [phone] Brady Ramachandran MD Unavailable [phone] Nata Mar RN Unavailable Unavailable Wing Pritchard [facility] Unavailable Unavaila ble Home Infusion Status:Enrolled (Active) Start date:10/13/2024 Enrollment date:10/13/2024 Related service episodes:[facility] Specialty Therapies - INFLECTRA 400 mg IV EVERY 8 WEEKS (Active) Overview Cutover Complete Tosha Simmons 10/28/2024 3:06 PM Case Team Name Relationship Phone Nata Mar RN(Responsible Staff) Home Infu simba Nursing Continued Care and Services Coordination
[2024-12-07 10:02] VITALS: BP 124/84; PULSE 67; RESP 18; TEMP 36.3; O2SAT 99
--- NOTE | 2024-12-07 10:32 | PC.NURSE ---
1031- pt and spouse updated on wait for radiology.
== END 2024-12-07 10:56 | disposition home or self-care (01) ==
PROVIDERS: Emergency Provider Nurse Practitioner Family
DX: M54.42 Lumbago with sciatica, left side (principal); F17.200 Nicotine dependence, unspecified, uncomplicated
CPT/HCPCS: 72110; 99213; G0463

== ENCOUNTER 2024-12-14 09:30 | Emergency (ER) | payer OTHER, SELFPAY ==
[2024-12-14] VITALS (7 sets, daily range): BP systolic 114–121; BP diastolic 64–82; PULSE 54–88; RESP 16; TEMP 36.3–36.4; O2SAT 98–100
[2024-12-14 09:44] LABS: Hematocrit 47.9 % (42.0-52.0); Hemoglobin 16.2 g/dL (14.0-18.0); Immature Granulocyte Percent A 0.7 % (0-0.5); Lymphocytes Absolute Auto 2.84 K/mm3 (0.9-3.2); Mean Corpuscular HGB Conc 33.8 g/dl (32-36); Mean Corpuscular Hemoglobin 29.1 pg (26-34); Mean Corpuscular Volume 86.0 fl (80-100); Nucleated Red Blood Cells Absolute Auto 0.000 K/mm3 (0.0-0.012); Nucleated Red Blood Cells Perc 0.0 % (0.0-0.2); Platelet Count Result 311 k/mm3 (150-375); Red Blood Count 5.57 M/mm3 (4.6-6.20); White Blood Count 13.8 K/mm3 (4.5-10.0)
[2024-12-14 09:54] LABS: Alanine Aminotransferase 31 U/L (6-50); Albumin Level 5.1 g/dL (3.5-5.1); Alkaline Phosphatase 105 U/L (38-126); Anion Gap 19 mmol/L (4-12); Aspartate Amino Transferase 44 U/L (17-59); Bilirubin,Total 2.4 mg/dL (0.2-1.3); Blood Urea Nitrogen 18 mg/dL (9-20); Calcium 9.8 mg/dL (8.4-10.2); Carbon Dioxide 16 mmol/L (22-30); Chloride 105 mmol/L (98-107); Estimated CRCL calculation 86 ml/min; Estimated Glomerular Filt Rate > 60; Glucose 114 mg/dL (65-110); Lipase 48 U/L (23-300); Potassium 4.1 mmol/L (3.4-5.0); Sodium 140 mmol/L (137-145); Total Protein 8.7 g/dL (6.3-8.2)
--- OUTSIDE RECORDS SUMMARY | 2024-12-14 10:06 | XMS_ITS | Clinical Summary ---
Author Organization [facility] Address [facility] [place] [address] Care Team Providers Care Magazine Repairer Name Role Phone Janet Hickman PA-C Primary Care Provider Allergies Active Allergy Reactions Criticality Noted Date [...] patient's age to complete this topic Insurance [facility] Care Teams Magazine Repairer Relationship Specialty Start Date End Date Janet Hickman PA-C [address] [facility] [address] [address] [place] [id number] PCP - General PHYSICIAN TAX ACCOUNTING MANAGER 10/16/22
--- OUTSIDE RECORDS SUMMARY | 2024-12-14 10:06 | XMS_ITS | Encounter Summary ---
Author Organization [facility] Healthcare Address [address] [place] [address] Care Team Providers Care Auto Servicer Name Role Phone Janet Hickman Primary Care Provider [phone] Brady Ramachandran MD Unavailable [phone] Nata Mar RN Unavailable Unavailable Wing Pritchard [facility] Unavailable Unavaila ble Encounter Details Date Type Department Care Team (Late st Contact Info) Description 12/10/2024 Home Infusion [facility] Home Infusion Therapy [address] [place] [address] Elena Tapia Social History Tobacco Use Types Packs/Day Years [...] often do you attend chur ch or roman catholic services? Never 10/17/2022 Do you belong to any clubs o r organizations such as oriental orthodox groups, unions, fraternal or athletic groups, or [...] place to sleep or slept in a assisted (including now)? No 10/17/2022 Personal Safety Answer [...] on file documented as of this encounter Plan of Treatment Not on file documented as of this encounter Visit Diagnoses Not on filedocumented in this encounter Care Teams Auto Servicer Relationship Specialty Start Date End Date Janet Hickman PA PCP - General Family Medicine 09/05/22 Brady Ramachandran MD [address] [facility] [address] [place] [address] PCP - Home Infusion Attending Gastroenterology 10/28/24 Nata Mar, RN Home Infusion Nursing 11/03/24 Wing Pritchard [facility] Pharmacist Pharmacy 11/16/24 documented as of this encounter
--- OUTSIDE RECORDS SUMMARY | 2024-12-14 10:06 | XMS_ITS | Clinical Summary ---
Author Organization [facility] [place] Address [address] [place] [address] Care Team Providers Care Cut Off Operator Scorer Name Role Phone Janet Hickman Primary Care Provider [phone] Brady Ramachandran MD Unavailable [phone] Nata Mar RN Unavailable Unavailable Wing Pritchard [facility] Unavailable Unavaila ble Allergies Active Allergy Reactions Criticality Noted Date Comments Cephalexin Hives Medium 09/05/2022 Medications inFLIXimab-dyyb (INFLECTRA) 100 mg injectionIndicat ions:Crohn's disease of both small and large intestine without complication (HCC) Reconstitute each vial with 10 mL sodium chloride 0.9% for injection. Once reconstituted, draw up 400 mg (40 ml) and add to sodium chloride 0.9% for injection (bag). Infuse with 1.2 micron filter via pole mounted pump. Begin infusion within 4 hours of mixing. Infusion directions: Infuse over 1 hour via Pole-Mounted pump at 250ml/hr 240 mL 11/04/19 25 026 Active sodium chloride 0.9% flush syringeIndicatio ns:Crohn's disease of both small and large intestine without complication (HCC) Infuse 10 mL IV as needed for line care 1000 mL 11/04/19 25 026 Active acetaminophen (TYLENOL) 325 mg tabletIndication s:Crohn's disease of both small and large intestine without complication (HCC) Take 2 tablets (650 mg total) by mouth every 8 (eight) weeks Take 30 minutes prior to infusion 12 tablet 11/04/19 25 026 Active diphenhydrAMINE (BENADRYL) 25 mg capsuleIndicatio ns:Crohn's disease of both small and large intestine without complication (HCC) Take 1 tablet/capsule (25 mg total) by mouth every 8 (eight) weeks Take 30 minutes prior to infusion. 6 tablet/capsu le 11/04/19 25 026 Active 0.9 % sodium chloride (sodium chloride 0.9%) infusionIndicati ons:Crohn's disease of both small and large intestine without complication (HCC) Infuse 250 mL IV every 8 (eight) weeks Use as IVPB bag for inFLIXimab infusion 1500 mL 11/04/19 026 Active inFLIXimab-dyyb (Inflectra) 100 mg injectionIndicat ions:Reinduction as of ~ 08/15/2024 Infuse 40 mL (400 mg total) into a venous catheter at week 0, week 2, week 6, and then every 8 weeks. (5 mg/kg dose). Site of Care: [facility] Home Care ([facility] order in [facility] under 'Procedures' tab). 025 Discontin ued(Dupli randee order) sodium chloride 0.9% injectionIndicat ions:line care Infuse 10 mL into a venous catheter as needed for line care 09/10/19 25 025 Discontin ued(Dupli randee order) acetaminophen (TYLENOL) 325 mg tabletIndication s:infusion pre-medication Take 2 tablets (650 mg total) by mouth as needed for pain Take by mouth 30 minutes prior to infusion. 09/11/19 25 025 Discontin ued(Patie nt Reported) diphenhydrAMINE (BENADRYL) 25 mg capsuleIndicatio ns:infusion pre-medication Take 1 tablet/capsule (25 mg total) by mouth as needed for itching Take by mouth 30 minutes prior to infusion. 09/11/19 25 025 Discontin ued(Patie nt Reported) Active Problems Problem Noted Date Diagnosed [...] -we will refer to IBD Clinic at [facility], patient will likely need be started [...] Encounters Date Type Department Care Team Description 12/10/[address] [facility] Home Infusion Therapy [address] [place] [address] Elena Tapia 12/08/[address] [facility] Home Infusion Therapy [address] [place] [address] Wing Pritchard, [facility] Crohn's disease of both small and large intestine without complication (HCC) (Primary Dx) 11/28/2024 Orders Only [facility] Gastroenterology [address] [place] [address] [address]th [place] [address] [place] [address] Jennifer García RN Crohn's disease of both small and large intestine without complication (HCC) (Primary Dx); High risk medications (not anticoagulants) long-term use; Routine health maintenance 11/03/2024 9:45 AM CDT Office Visit [facility] Gastroenterology [facility] Medicine 12th [place] [address] [place] [address] Brady Ramachandran MD Crohn's disease of both small and large intestine without complication (HCC) (Primary Dx); High risk medications (not anticoagulants) long-term use 11/03/[address] [facility] Home Infusion Therapy [address] [place] [address] Peggy Ibanez RN 11/03/2024 Orders Only [facility] [address] [place] [address] Wing Pritchard, [facility] 11/03/[address] [facility] Home Infusion Therapy [address] [place] [address] Wing Pritchard, [facility] 11/03/2024 Telephone [facility] Gastroenterology [address] [facility] [address]th [place] [address] [place] [address] Jennifer García RN Med Management- Infusion over 1 hr 11/03/2024 Results Follow-Up [facility] Gastroenterology [address] [facility] 12th [place] [address] [place] [address] Brady Ramachandran MD Comprehensive metabolic panel, CBC with auto differential, CRP (acute phase), Additional followed-up results: 2 10/30/2024 12:20 PM CDT - 10/30/2024 11:59 PM CDT Hospital Encounter [address] [address] Discharge Disposition: Discharge to home or self care 10/30/2024 12:00 PM CDT Home Care Visit [address] [place] [address] Nata Mar RN SN INFUSION TREATMENT ROOM 09/24/2024 1:00 PM CDT Home Care Visit [address] [place] [address] Nata Mar RN SN INFUSION TREATMENT ROOM from Last 3 Months Immunizations Immunization Administration [...] often do you attend chur ch or adventism services? Never 10/17/2022 Do you belong to any clubs o r organizations such as episcopalian groups, unions, fraternal or athletic groups, or [...] place to sleep or slept in a penitentiary (including now)? No 10/17/2022 Personal Safety Answer [...] Depression Screening 10/17/2023 10/16/2022, 09/06/19 Influenza Vaccine (#1) 2025 DTaP/Tdap/Td Vaccine (8 - Td or Tdap) 08/24/2032 08/24/2022, 09/21/2009, 12/03/2000, Additional history exists Varicella Vaccines Completed 11/29/2009, 09/01/1996 Hepatitis B Screening Completed 12/12/2023 , 04/05/1996, 1995, Additional history exists HPV Vaccines Aged Out No longer eligi ble based on patient's age to complete this topic Medical Devices Implanted Type Area Agricultural Extension Agent Device Identifier Shelf Expiration Date Model / Serial / Lot [employer] Neuragen 4mm 3cm Semipermeable Peripheral Guide Nerve Bovine [id number] - [id number] Implanted:Qty: 1 on 10/05/2022 by Jose F Ellison MD at [facility] Sobresalena ParkerVision [id number] / / [id number] Procedures Procedure Name Priority Date/Time Associated Diagnosis Comments EGFR Routine 10/30/2024 12:20 PM CDT DIFFERENTIAL AUTO Routine 10/30/2024 12: 20 PM CDT CRP (ACUTE PHASE) Routine 10/30/2024 12: 20 PM CDT CBC WITH AUTO DIFFERENTIAL Routine 10/30/2024 12:20 PM CDT COMPREHENSIVE METABOLIC PANEL Routine 10/30/2024 12:20 PM CDT from Last 3 Months Results [...] 0 PM CDT 10/30/2024 9:27 PM CDT us Brady Ramachandran MD LAB BLOOD ORDERABLES F inal Result [facility] [id number] [address] Department [place] [address] * Differential, auto (10/30/2024 12:20 PM CDT) Neutrophil abs 3.40 1.50 - 6.50 K/cumm Imm gran abs 0.02 0.00 - 0.10 K/cumm [facility] Lymphocyte abs 2.41 0.80 - 3.30 K/cumm [facility] Monocyte abs 0.61 0.20 - 0.80 K/cumm [facility] Eosinophil abs 0.13 0.00 - 0.50 K/cumm [facility] Basophil abs 0.07 0.00 - 0.10 K/cumm [facility] Neutrophil pct 51.1 % [facility] Comment: Interpretive Data Percent cell count reference ranges are not reported, since discordance with absolute values may lead to misinterpretation of CBC data. Current Interpretive Data was last revised on 2017. Imm gran pct 0.3 % [facility] Comment: Interpretive Data Percent cell count reference ranges are not reported, since discordance with absolute values may lead to misinterpretation of CBC data. Current Interpretive Data was last revised on 2017. Lymphocyte pct 36.3 % [facility] Comment: Interpretive Data Percent cell count reference ranges are not reported, since discordance with absolute values may lead to misinterpretation of CBC data. Current Interpretive Data was last revised on 2017. Monocyte pct 9.2 % [facility] Comment: Interpretive Data Percent cell count reference ranges are not reported, since discordance with absolute values may lead to misinterpretation of CBC data. Current Interpretive Data was last revised on 2017. Eosinophil pct 2.0 % [facility] Comment: Interpretive Data Percent cell count reference ranges are not reported, since discordance with absolute values may lead to misinterpretation of CBC data. Current Interpretive Data was last revised on 2017. Basophil pct 1.1 % [facility] Comment: Interpretive Data Percent cell count reference ranges are not reported, since discordance with absolute values may lead to misinterpretation of CBC data. Current Interpretive Data was last revised on 2017. Blood 10/30/2024 12:2 0 PM CDT 10/30/2024 8:59 PM CDT us Brady Ramachandran MD LAB BLOOD ORDERABLES F inal Result [facility] [id number] [address] [place] Department [place] [address] * CBC with auto differential (10/30/2024 12:20 PM CDT) WBC 6.64 3.80 - 9.90 K/cumm Hgb 14.7 13.0 - 17.5 g/dL [facility] Hct 45.3 38.9 - 50.3 % [facility] Plt 258 150 - 400 K/cumm [facility] MPV 9.7 9.1 - 12.3 fL [facility] RBC 5.04 4.30 - 5.80 M/cumm [facility] MCV 89.9 81.3 - 96.4 fL [facility] MCH 29.2 27.1 - 33.3 pg [facility] MCHC 32.5 32.3 - 35.7 g/dL [facility] RDW CV 12.8 11.1 - 14.9 % [facility] RDW SD 41.9 35.7 - 48.1 fL [facility] NRBC abs 0.00 0.00 - 0.01 K/cumm [facility] Blood 10/30/2024 12:2 0 PM CDT 10/30/2024 8:59 PM CDT Brady Ramachandran MD LAB BLOOD ORDERABLES F inal Result Performing Organization Address City/[facility]/ZIP Co de Phone Number MEGAN [phone] [address] Department [place] [address] * CRP (acute phase) (10/30/2024 12:20 PM CDT) Pathologist [facility] CRP <3.0 <=10.0 mg/L Blood 10/30/2024 12:2 0 PM CDT 10/30/2024 8:58 PM CDT Brady Ramachandran MD LAB BLOOD ORDERABLES F inal Result Performing Organization Address [facility] Co de Phone Number MEGAN [phone] [address] Department [place] [address] * (ABNORMAL) Comprehensive metabolic panel (10/30/2024 12:20 PM CDT) Sodium 139 135 - 145 mmol/L Potassium, pl 4.0 3.3 - 4.9 mmol/L [facility] Chloride 105 97 - 110 mmol/L [facility] CO2 21(L) 22 - 32 mmol/L [facility] Anion gap 13 2 - 15 mmol/L [facility] BUN 15 6 - 25 mg/dL [facility] Creatinine 1.01 0.80 - 1.30 mg/dL [facility] Glucose 80 70 - 199 mg/dL [facility] Comment: Interpretive Data Fasting glucose >/= [...] LAB BLOOD ORDERABLES F inal Result [place]ERNER [id number] [address] [place] Department [place] [address] from Last 3 Months Insurance [facility] Member Subscriber Plan / Payer (Ef fective 2017-Present) Name:Bairon Albert Relation to Subscriber:Self Name:Bairon Albert Payer ID:[id number] (NAIC) Type:[employer] HMO/PPO Address: [facility] [address] [place] [address] [facility] HMO/PPO Address: [address] [place] [id number] [employer] [facility] HMO/PPO Address: [address] [address] [place] [address] [employer] COMPENSATION GENERIC [employer] INS[employer] WORK[employer] COMPENSATION GENERIC WORKERS COMPENSATION GENERIC Advance Directives For more information, please contact: [phone] * Full Code (Latest Code Status on File) Date Activated Date Inactivated Comments 04/22/2024 10:07 AM 04/22/2024 3:59 PM * Full Code Date Activated Date Inactivated Comments 10/20/2022 1:29 PM 10/22/2022 6:36 PM * Full Code Date Activated Date Inactivated Comments 10/16/2022 9:35 PM 10/20/2022 1:29 PM Care Teams Cut Off Operator Scorer Relationship Specialty Start Date End Date Janet Hickman PA PCP - General Family Medicine 09/05/22 Brady Ramachandran MD [address] [facility] [address] [place] [address] PCP - Home Infusion Attending Gastroenterology 10/28/24 Nata Mar, RN Home Infusion Nursing 11/03/24 Wing Pritchard [facility] Pharmacist Pharmacy 11/16/24
--- OUTSIDE RECORDS SUMMARY | 2024-12-14 10:06 | XMS_ITS ---
Author Organization [facility] at the [facility] Office Center Address [address] [place] [address] Care Team Providers Care Director Of Psychiatry Name Role Phone Janet Hickman Primary Care Provider [phone] Brady Ramachandran MD Unavailable [phone] Nata Mar RN Unavailable Unavailable Wing Pritchard [facility] Unavailable Unavaila ble [facility] - INFLECTRA 400 mg IV EVERY 8 WEEKS Status:Enrolled (Active) Start date:10/13/2024 Enrollment date:10/13/2024 Linked medications:infliximab-dyyb (Active) Related program episode:Home Infusion (Active) Overview Cutover Complete Case Team Name Relationship Phone Nata Mar RN Home Infusion Nursing Wing Pritchard [facility](Responsible Staff) Pharma cist Continued Care and Services Coordination This section includes services coordinated for [facility] - INFLECTRA 400 mg IV EVERY8 WEEKS. Home Medical Care Name Services Phone [facility] Home Infusion Therapy Home Infusion and Inje ction
--- OUTSIDE RECORDS SUMMARY | 2024-12-14 10:06 | XMS_ITS ---
Author Organization [facility] at the [facility] Address [address] [place] [address] Care Team Providers Care Turkey Cleaner Name Role Phone Janet Hickman Primary Care Provider [phone] Brady Ramachandran MD Unavailable [phone] Nata Mar RN Unavailable Unavailable Wing Pritchard [facility] Unavailable Unavaila ble Home Infusion Status:Enrolled (Active) Start date:10/13/2024 Enrollment date:10/13/2024 Related service episodes:[facility] Special[facility] Therap[facility] - INFLECTRA 400 mg IV EVERY 8 WEEKS (Active) Overview Cutover Complete Tosha Simmons 10/28/2024 3:06 PM Case Team Name Relationship Phone Nata Mar RN(Responsible Staff) Home Infu simba Nursing Continued Care and Services Coordination
--- OUTSIDE RECORDS SUMMARY | 2024-12-14 10:06 | XMS_ITS | Encounter Summary ---
Author Organization [facility] Address [address] [place] [address] Phone Care Team Providers Care Auto Camp Attendant Name Role Phone Janet Hickman Primary Care Provider [phone] Brady Ramachandran MD Unavailable [phone] Nata Mar RN Unavailable Unavailable Wing Pritchard [facility] Unavailable Unavaila ble Encounter Details Date Type Department Care Team (Late st Contact Info) Description 11/03/2024 Results Follow-Up [facility] Gastroenterology [address] [facility] [address]th [place] [address] [place] [address] Brady Ramachandran MD [address] [facility] [address] [place] [address] Comprehensive metabolic panel, CBC with [...] often do you attend chur ch or religion services? Never 10/17/2022 Do you belong to any clubs o r organizations such as anabaptism groups, unions, fraternal or athletic groups, or [...] place to sleep or slept in a alf (including now)? No 10/17/2022 Personal Safety Answer [...] filedocumented in this encounter Care Teams Auto Camp Attendant Relationship Specialty Start Date End Date Janet Hickman PA PCP - General Family Medicine 09/05/22 Brady Ramachandran MD [address] [facility] [place] [address] PCP - Home Infusion Attending Gastroenterology 10/28/24 Nata Mar, RN Home Infusion Nursing 11/03/24 Wing Pritchard, [facility] Pharmacist Pharmacy 11/16/24 documented as of this encounter
--- OUTSIDE RECORDS SUMMARY | 2024-12-14 10:06 | XMS_ITS | Referral Summary ---
Author Organization [facility] at [facility] Address [address] [place] [address] Care Team Providers Care Assistant Program Manager Name Role Phone Janet Hickman Primary Care Provider [phone] Brady Ramachandran MD Unavailable [phone] Nata Mar RN Unavailable Unavailable Wing Pritchard [facility] Unavailable Unavaila ble Encounters Date Type Department Care Team Description 12/10/2024 Home Infusion [facility] [address] [place] [address] Elena Tapia 12/08/2024 Home Infusion [facility] [address] [place] [address] Wing Pritchard, [facility] Crohn's disease of both small and large intestine without complication (HCC) (Primary Dx) 11/28/[address] [facility] Gastroenterology [facility] [address]th [place] [address] [place] [address] Jennifer García RN Crohn's disease of both small and large intestine without complication (HCC) (Primary Dx); High risk medications (not anticoagulants) long-term use; Routine health maintenance 11/03/2024 Home Infusion [facility] [address] [place] [address] Peggy Ibanez RN 11/03/2024 Orders Only [facility] [address] [place] [address] Wing Pritchard, [facility] 11/03/2024 Home Infusion [facility] Home Infusion Therapy [address] [place] [address] Wing Pritchard, [facility] 11/03/[address] [facility] Gastroenterology [address] [facility] [address]th [place] [address] [place] [address] Jennifer García RN Med Management- Infusion over 1 hr 11/03/2024 Results Follow-Up [facility] Gastroenterology [facility] [address] [address] [place] [address] Brady Ramachandran MD Comprehensive metabolic panel, CBC with auto differential, CRP (acute phase), Additional followed-up results: 2 11/03/2024 9:45 AM CDT Office Visit [facility] Gastroenterology [address] [place] [address] [place] [address] [place] [address] Brady Ramachandran MD Crohn's disease of both small and large intestine without complication (HCC) (Primary Dx); High risk medications (not anticoagulants) long-term use 10/30/2024 12:20 PM CDT - 10/30/2024 11:59 PM CDT Hospital Encounter [address] [address] Discharge Disposition: Discharge to home or self care 10/30/2024 12:00 PM CDT Home Care Visit [address] [place] [address] Nata Mar RN SN INFUSION TREATMENT ROOM 09/24/2024 1:00 PM CDT Home Care Visit [address] [place] [address] Nata Mar RN SN INFUSION TREATMENT ROOM from Last 3 Months Allergies Active Allergy [...] bag for inFLIXimab infusion 1500 mL 11/04/19 25 026 Active inFLIXimab-dyyb (Inflectra) 100 mg injectionIndicat ions:Reinduction as of ~ 08/15/2024 Infuse 40 mL (400 mg total) into a venous catheter at week 0, week 2, week 6, and then every 8 weeks. (5 mg/kg dose). Site of Care: [facility] Home Care ([facility] order in Epic under 'Procedures' tab). 025 Discontin ued(Dupli randee [...] -we will refer to IBD Clinic at [facility], patient will likely need be [...] often do you attend chur ch or quaker services? Never 10/17/2022 Do you belong to any clubs o r organizations such as gnosticism groups, unions, fraternal or athletic groups, or [...] place to sleep or slept in a skilled nursing (including now)? No 10/17/2022 Personal Safety Answer [...] on file Medical Devices Implanted Type Area Dry Kiln Loader Device Identifier Shelf Expiration Date Model / Serial / Lot [employer] Data[employer]ision Neuragen 4mm 3cm Semipermeable Peripheral Guide Nerve Bovine [id number] - [id number] Implanted:Qty: 1 on 10/05/2022 by Jose F Ellison MD at [facility] [place] Remote Jose De Jesus [id number] / / [id number] Procedures Procedure Name Priority Date/Time Associated Diagnosis [...] LAB BLOOD ORDERABLES F inal Result MEGAN [id number] [address] Department [place] [address] * Differential, auto (10/30/2024 12:20 PM CDT) Neutrophil abs 3.40 1.50 - 6.50 K/cumm Imm gran abs 0.02 0.00 - 0.10 K/cumm [facility] Lymphocyte abs 2.41 0.80 - 3.30 K/cumm [facility] Monocyte abs 0.61 0.20 - 0.80 K/cumm [facility] Eosinophil abs 0.13 0.00 - 0.50 K/cumm [facility] Basophil abs 0.07 0.00 - 0.10 K/cumm [facility] Neutrophil pct 51.1 % [facility] Comment: Interpretive Data Percent cell count reference ranges are not reported, since discordance with absolute values may lead to misinterpretation of CBC data. Current Interpretive Data was last revised on 2017. Imm gran pct 0.3 % [facility] Comment: Interpretive Data Percent cell count reference ranges are not reported, since discordance with absolute values may lead to misinterpretation of CBC data. Current Interpretive Data was last revised on 2017. Lymphocyte pct 36.3 % [facility] Comment: Interpretive Data Percent cell count reference ranges are not reported, since discordance with absolute values may lead to misinterpretation of CBC data. Current Interpretive Data was last revised on 2017. Monocyte pct 9.2 % [facility] Comment: Interpretive Data Percent cell count reference ranges are not reported, since discordance with absolute values may lead to misinterpretation of CBC data. Current Interpretive Data was last revised on 2017. Eosinophil pct 2.0 % [facility] Comment: Interpretive Data Percent cell count reference ranges are not reported, since discordance with absolute values may lead to misinterpretation of CBC data. Current Interpretive Data was last revised on 2017. Basophil pct 1.1 % [facility] Comment: Interpretive Data Percent cell count reference ranges are not reported, since discordance with absolute values may lead to misinterpretation of CBC data. Current Interpretive Data was last revised on 2017. Blood 10/30/2024 12:2 0 PM CDT 10/30/2024 8:59 PM CDT Brady Ramachandran MD LAB BLOOD ORDERABLES F inal Result Performing Organization Address [facility] Co de Phone Number MEGAN [phone] [address] [place] [address] * CBC with auto differential (10/30/2024 12:20 PM CDT) WBC 6.64 3.80 - 9.90 K/cumm Hgb 14.7 13.0 - 17.5 g/dL [facility] Hct 45.3 38.9 - 50.3 % [facility] Plt 258 150 - 400 K/cumm [facility] MPV 9.7 9.1 - 12.3 fL [facility] RBC 5.04 4.30 - 5.80 M/cumm [facility] CH MCV 89.9 81.3 - 96.4 fL [facility] CH MCH 29.2 27.1 - 33.3 pg [facility] MCHC 32.5 32.3 - 35.7 g/dL [facility] RDW CV 12.8 11.1 - 14.9 % [facility] CH RDW SD 41.9 35.7 - 48.1 fL [facility] NRBC abs 0.00 0.00 - 0.01 K/cumm [facility] CH Blood 10/30/2024 12:2 0 PM CDT 10/30/2024 8:59 PM CDT us Brady Ramachandran MD LAB BLOOD ORDERABLES F inal Result Performing Organization Address [facility] Co de Phone Number MEGAN MERAZ [phone] [address] [place] [address] * CRP (acute phase) (10/30/2024 12:20 PM CDT) Pathologist [facility] CRP <3.0 <=10.0 mg/L Blood 10/30/2024 12:2 0 PM CDT 10/30/2024 8:58 PM CDT Brady Ramachandran MD LAB BLOOD ORDERABLES F inal Result Performing Organization Address [facility] Co de Phone Number MEGAN MERAZ [phone] [address] Department [place] [address] * (ABNORMAL) Comprehensive metabolic panel (10/30/2024 12:20 [...] CDT 10/30/2024 8:58 PM CDT us Brady Rmaachandran MD LAB BLOOD ORDERABLES F inal Result MEGAN MERAZ [id number] [address] Department [place] [address] from Last 3 Months Insurance [facility] H[facility]/PPO Address: [facility] [address] [place] [address] [facility] OPUS COPAY ASSIST [facility] TRAVELERS INSURANCE WORKERS COMPENSATION GENERIC TRAVELERS INSURANCE WORKERS COMPENSATION GENERIC WORKERS COMPENSATION GENERIC Advance Directives For more information, please contact: [phone] * Full Code (Latest Code Status on File) Date Activated Date Inactivated Comments 04/22/2024 10:07 AM 04/22/2024 3:59 PM * Full Code Date Activated Date Inactivated Comments 10/20/2022 1:29 PM 10/22/2022 6:36 PM * Full Code Date Activated Date Inactivated Comments 10/16/2022 9:35 PM 10/20/2022 1:29 PM Care Teams Assistant Program Manager Relationship Specialty Start Date End Date Janet Hickman PA PCP - General Family Medicine 09/05/22 Brady Ramachandran MD [address] [facility] [place] [address] PCP - Home Infusion Attending Gastroenterology 10/28/24 Nata Mar, RN Home Infusion Nursing 11/03/24 Wing Pritchard, [facility] Pharmacist Pharmacy 11/16/24
[2024-12-14 10:27] LABS: Add Urine Microscopic? YES; Appearance Urine Clear (Clear); Glucose Urine UA Negative (Negative); Leukocyte Esterase Ur Negative LEU/UL (Negative); Need Manual Microscopic Reviewed; Nitrate Urine Negative (Negative); Non Pathogenic Casts 0-2; Specific Grav Ur 1.032 (1.001-1.035)
--- NOTE | 2024-12-14 10:30 | ED_ITS ---
HPI - General Adult General Chief complaint: Nausea/Vomiting/Diarrhea Stated complaint: vomiting x 2 hours Time Seen by Provider: 12/14/24 09:43 History of Present Illness HPI narrative: Patient is a 29-year-old male with history of Crohn's disease who presents ER with nausea vomiting. Reports he had 6 beers last night. He woke up today was playing golf with friends and was having dizziness with vomiting. Symptoms worsened so he quit and went home. He has been having spinning dizziness with seeing stars and feeling flushed and vomiting. No sinus congestion sore throat. No previous history of vertigo. He is not having diarrhea or abdominal pain. Related Data Home Medications ?Medication ?Instructions ?Recorded ?Confirmed ?Last Taken ?Type infliximab 100 mg intravenous See Rx Instructions .Route .COMPLEX 02/09/24 03/25/24 Unknown History solution (Remicade) Allergies Allergy/AdvReac Type Severity Reaction Status Date / Time cephalexin Allergy Mild Hives Verified 12/14/24 09:34 erythromycin base Allergy Mild Hives Verified 12/14/24 09:34 Review of Systems 2 Review of Systems: All systems reviewed & are unremarkable except as noted in HPI and below Constitutional: Constitutional: Reports no additional constitutional complaints Cardiovascular: Cardiovascular: Reports no additional cardiovascular complaints Respiratory: Respiratory: Reports no additional respiratory complaints Gastrointestinal: Gastrointestinal: Reports no additional gastrointestinal complaints [facility] Past Medical History Medical History No acute medical problems Family History Family History Other No acute medical problems Social History Social History Smoking status: Current some day smoker Alcohol intake: never Gender identity (if verbalized by the patient): Male Exam 2 Narrative: GENERAL: Well-appearing, well-nourished, and in no acute distress. HEAD: Normocephalic, atraumatic. Eyes: PERRLA, EOMI, lateral gaze nystagmus noted. ENT: Mucous membranes moist. TMs normal bilaterally. CHEST: Clear to auscultation. No respiratory distress. HEART: Regular rate and rhythm. Normal peripheral pulses. ABDOMEN: Soft, nontender, nondistended. EXTREMITIES: Normal range of motion. No edema. SKIN: Warm, dry, no rash. NEURO: Alert and oriented x3. PSYCH: Normal mood and affect. Course Course Emergency Course: Orthostatics negative. Symptoms improved. Discharge home. Vital Signs Vital signs: Vital Signs Temperature 97.5 F L 12/14/24 09:26 Pulse Rate 66 12/14/24 09:26 Respiratory Rate 16 12/14/24 09:26 Blood Pressure 121/70 12/14/24 09:26 Pulse Oximetry 100 12/14/24 09:26 Oxygen Delivery Room Air 12/14/24 09:26 Temperature 97.4 F L 12/14/24 12:30 Pulse Rate 54 L 12/14/24 12:10 Respiratory Rate 16 12/14/24 11:33 Blood Pressure 121/79 12/14/24 12:10 Pulse Oximetry 98 12/14/24 11:33 Oxygen Delivery Room Air 12/14/24 09:26 Medical Decision Making Vital Signs Vital Signs: Vital Signs Temperature 97.5 F L 12/14/24 09:26 Pulse Rate 66 12/14/24 09:26 Respiratory Rate 16 12/14/24 09:26 Blood Pressure 121/70 12/14/24 09:26 Pulse Oximetry 100 12/14/24 09:26 Oxygen Delivery Room Air 12/14/24 09:26 Temperature 97.4 F L 12/14/24 12:30 Pulse Rate 54 L 12/14/24 12:10 Respiratory Rate 16 12/14/24 11:33 Blood Pressure 121/79 12/14/24 12:10 Pulse Oximetry 98 12/14/24 11:33 Oxygen Delivery Room Air 12/14/24 09:26 Lab Data 12/14/24 09:37 12/14/24 09:37 Labs: Lab Results 12/14/24 12/14/24 Range/Units 09:37 10:00 WBC 13.8 H (4.5-10.0) K/mm3 RBC 5.57 (4.6-6.20) M/mm3 Hgb 16.2 (14.0-18.0) g/dL Hct 47.9 (42.0-52.0) % MCV 86.0 (80-100) fl MCH 29.1 (26-34) pg MCHC 33.8 (32-36) g/dl RDW 12.9 (11.5-14.5) % Plt Count 311 (150-375) k/mm3 MPV 8.9 (7.4-10.4) fl Immature Gran % (Auto) 0.7 H (0-0.5) % Neut % (Auto) 69.0 (45.5-73.1) % Lymph % (Auto) 20.5 (18.3-44.2) % [place] % (Auto) 8.8 H (2.6-8.5) % Eos % (Auto) 0.4 (0-4.4) % Baso % (Auto) 0.6 (0.2-1.2) % Lymph # (Auto) 2.84 (0.9-3.2) K/mm3 [place] # (Auto) 1.2 H (0.1-0.6) K/mm3 Eos # (Auto) 0.1 (0-0.3) K/mm3 Baso # (Auto) 0.1 (0.0-0.1) K/mm3 Abs Immat Gran (auto) 0.09 H (0.00-0.031) K/mm3 Absolute Neuts (auto) 9.5 H (1.3-6.7) K/mm3 Absolute Nucleated RBC 0.000 (0.0-0.012) K/mm3 Nucleated RBC % 0.0 (0.0-0.2) % Sodium 140 (137-145) mmol/L Potassium 4.1 (3.4-5.0) mmol/L Chloride 105 (98-107) mmol/L Carbon Dioxide 16 L (22-30) mmol/L Anion Gap 19 H (4-12) mmol/L BUN 18 (9-20) mg/dL Creatinine 1.16 (0.7-1.3) mg/dL Estim Creat Clear Calc 86 ml/min Estimated GFR > 60 (59 - ) Glucose 114 H (65-110) mg/dL Calcium 9.8 (8.4-10.2) mg/dL Total Bilirubin 2.4 H (0.2-1.3) mg/dL AST 44 (17-59) U/L ALT 31 (6-50) U/L Alkaline Phosphatase 105 (38-126) U/L Total Protein 8.7 H (6.3-8.2) g/dL Albumin 5.1 (3.5-5.1) g/dL Lipase 48 (23-300) U/L Urine Color Yellow (Yellow) Urine Appearance Clear (Clear) Urine pH 5.5 (5.0-9.0) Ur Specific [place] 1.032 (1.001-1.035) Urine Protein 1+ H (Negative) mg/dL Urine Glucose (UA) Negative (Negative) mg/dL Urine Ketones 3+ H (Negative) mg/dL Ur Blood (Man) Negative (Negative) Urine Nitrate Negative (Negative) Urine Bilirubin Negative (Negative) Urine Urobilinogen 1.0 (<2.0) mg/dL Add Ur Microanalysis Reviewed Leukocyte Esterase Rfl Negative (Negative) SAMIR/UL Urine RBC 0-2 (0-2) /hpf Urine WBC 0-5 (0-3) /hpf Ur Squamous Epith Cells None seen (Few) /hpf Urine Bacteria None seen /hpf Urine Casts 0-2 Discharge Plan Discharge Clinical Impression: Vomiting, Vaso-vagal reaction Patient Disposition: Home Condition: Stable Instructions: Dehydration (ED), Acute Nausea and Vomiting (ED) Additional Instructions: Return to the emergency department if you develop severe abdominal pain, severe nausea and vomiting to the point where you are unable to keep down fluids, if you develop chest pain or difficulty breathing, blood in your stool, dizziness or fainting, or if you develop any other new or concerning symptoms as these could be signs of more serious medical illness. Try to stay well hydrated. Patient Language: Occitan Prescriptions: No Action cyclobenzaprine 10 mg tablet 10 mg PO Q8H PRN (Reason: muscle spasm) 7 Days Qty: 21 0RF methylprednisolone [Medrol (Cole)] 4 mg tablets,dose pack See Rx Instructions PO .COMPLEX Qty: 21 0RF Rx Instructions: orally per package directions infliximab [Remicade] 100 mg Recon Soln See Rx Instructions .ROUTE .COMPLEX Rx Instructions: 100 mg intravenously every two months Follow-up/Referrals: Fox Shannon MD [Physician] - 1 Week PHYSICIAN,CORRECTIONAL OFFICER SERGEANT [Primary Care Provider] -
[2024-12-14] MEDS: SODIUM CHLORIDE 0.9% IV 1,000 ML 999 ML IV CONT (10:42)
--- NOTE | 2024-12-14 10:50 | PC.NURSE ---
Pt family requesting to speak to EDP, EDP made aware
== END 2024-12-14 12:30 | disposition home or self-care (01) ==
PROVIDERS: Emergency Provider Emergency Medicine
DX: R11.10 Vomiting, unspecified (principal); R55 Syncope and collapse; K50.90 Crohn's disease, unspecified, without complications; F17.200 Nicotine dependence, unspecified, uncomplicated
CPT/HCPCS: 36415; 80053; 81001; 83690; 85025; 96360; 99283; A9270; J7030

== ENCOUNTER 2025-03-17 17:35 | Emergency (ER) | payer OTHER, SELFPAY ==
--- NOTE | 2025-03-17 17:41 | ED.SKABFB ---
HPI - Skin/Abscess/Foreign Bdy General Chief complaint: Skin/Abscess/Foreign Body Stated complaint: Skin Time Seen by Provider: 03/17/25 17:48 Source: patient, RN notes reviewed and old records reviewed Mode of arrival: ambulatory Limitations: no limitations History of Present Illness HPI narrative: 29-year-old male presents to the [facility] with redness, itching to bilateral axilla areas of arms. Patient reports that on Sunday and Sunday he was deer hunting, climbed a tree. Started with irritation. Has been applying hydrocortisone cream and taking Benadryl. Area is blanchable, dry. No fluctuance, not raised. Area is pink, dry, no abscesses. Denies fevers. Has full range of motion the wrist and elbows. Onset (ago): day(s) (-5) Related Data Home Medications ?Medication ?Instructions ?Recorded ?Confirmed ?Last Taken ?Type infliximab 100 mg intravenous See Rx Instructions .Route .COMPLEX 02/09/24 03/17/25 Unknown History solution (Remicade) Allergies Allergy/AdvReac Type Severity Reaction Status Date / Time cephalexin Allergy Mild Hives Verified 03/17/25 17:37 erythromycin base Allergy Mild Hives Verified 03/17/25 17:37 Review of Systems Review of Systems: All systems reviewed & are unremarkable except as noted in HPI and below Constitutional: Constitutional: Reports no additional constitutional complaints ENT: Reports system reviewed and no additional complaints, except as documented Cardiovascular: Cardiovascular: Reports no additional cardiovascular complaints, Denies chest pain and Denies dyspnea Respiratory: Respiratory: Reports no additional respiratory complaints, Denies chest congestion, Denies cough and Denies dyspnea Musculoskeletal: Musculoskeletal: Reports no additional musculoskeletal complaints Integumentary/Breasts: Skin/Breast: Reports as per HPI [facility] Past Medical History Medical History No acute medical problems Family History Family History Other No acute medical problems Social History Social History Smoking status: Current some day smoker Alcohol intake: never Gender identity (if verbalized by the patient): Male Comments At the time of my signature, I reviewed and agree with the nursing past medical, surgical, social, and family history. There is no relevant family history pertinent to the patient complaint. Exam Const: General: cooperative, healthy appearing, comfortable, no acute distress, well developed, alert and well nourished Nutritional Appearance: well nourished Orientation/consciousness: patient oriented x3 Limitations: no limitations HENMT: Head: normal to inspection Mouth: Yes Normal oral and palatal mucosa present, Yes lip normal, Yes tongue normal and Yes moist mucous membranes Eyes: General: appearance normal, both eyes and all related structures Alignment and Position: alignment normal Neck: Neck: normal visual inspection, full ROM, no lymphadenopathy and no meningeal signs Chest: Chest palpation & inspection: normal inspection of the chest Resp: Effort & Inspection: normal respiratory effort and able to speak in complete sentences Auscultation: clear to auscultation bilaterally, no crackles, no rales, no rhonchi and no wheezes Cardio: Rate: regular rate Skin: General skin exam: normal color and no rashes or lesions noted Full body images:  1. Dry itching erythema, no fluctuance, not raised, blanchable 2. Dry erythema, no fluctuance, not raised, blanchable Neuro: General: patient oriented x3, gait normal, moves all extremities and no meningeal signs Cognition (Neuro): normal cognition Speech: normal speech Gait exam (Neuro): Normal gait present Extrem: General: normal to inspection, full ROM, capillary refill normal and normal gait Right upper extremity: elbow/forearm normal ROM and wrist normal ROM Left upper extremity: elbow/forearm normal ROM and wrist normal ROM Psych: Appearance: grossly normal and well kempt Mental Status: mental status grossly normal Speech and movement: Normal speech and movement present and Clear speech present Affect: normal affect Attitude: cooperative Course Course Level of Care: Express Care Visit Vital Signs Vital signs: Vital Signs Temperature 98.1 F 03/17/25 17:44 Pulse Rate 97 03/17/25 17:44 Respiratory Rate 18 03/17/25 17:44 Blood Pressure 111/68 03/17/25 17:44 Pulse Oximetry 100 03/17/25 17:44 Oxygen Delivery Room Air 03/17/25 17:44 Temperature 98.1 F 03/17/25 17:44 Pulse Rate 97 03/17/25 17:44 Respiratory Rate 18 03/17/25 17:44 Blood Pressure 111/68 03/17/25 17:44 Pulse Oximetry 100 03/17/25 17:44 Oxygen Delivery Room Air 03/17/25 17:44 Reviewed MDM - Skin/Abscess/Foreign Bdy MDM Narrative Medical decision making narrative: Patient sitting comfortably in exam room. Patient is nontoxic, vitals are stable. Patient presents with it she erythema patches to the bilateral axillas and forearm. Exam most consistent with dermatitis. No signs of abscesses, cellulitic changes. Patient is appropriate for outpatient treatment with close follow-up Discharge instructions reviewed with patient, as well as provided in writing per nursing staff. The instructions also include specific and strict return/GO TO THE ER as well as f/u information. All questions have been answered, and the patient deny any further questions with discharge and discharge plan. Some parts of this dictation were generated by voice recognition software and may contain typographical and/or grammatical inaccuracies. Differential Diagnosis Differential diagnosis: Likely abscess of skin or subcutaneous tissue, urticaria, allergic reaction to drug, cellulitis, eczema and contact dermatitis Critical Care Time Critical Care Time Critical Care Time: No Discharge Plan Discharge Clinical Impression: Contact dermatitis Patient Disposition: Home Condition: Stable Instructions: Antibiotic Form, Dermatitis (ED) Additional Instructions: The most important part of your care is follow up with Primary care provider. Take Benadryl 25-50 mg every 8 hours for itching Take Zyrtec every day Take Pepcid 20mg daily for 7 days Take the steroids starting in the morning. You can take your 1st prednisone tonight it may cause insomnia Apply cream twice daily to a clean dry area, use sparingly Avoid hot showers, Take cool showers. Hot showers will make rashes worse Apply cool compresses every 2-3 hours for 15 minutes Go to the ER for new or worsening symptoms such as shortness of breath. Patient Language: Bulgarian Prescriptions: New prednisone 20 mg tablet See Rx Instructions .Route .COMPLEX Qty: 20 0RF Rx Instructions: Take 60 mg daily for 3 days, 40 mg daily for 3 days, 20 mg daily for 3 days, 10mg day for 3 days triamcinolone acetonide 0.1 % cream 1 applic topical BID Qty: 80 0RF No Action infliximab [Remicade] 100 mg Recon Soln See Rx Instructions .ROUTE .COMPLEX Rx Instructions: 100 mg intravenously every two months Follow-up/Referrals: PHYSICIAN,MACHINE TRIMMER [Primary Care Provider, Internal Medicine] Stand Alone Forms: Work/School Release IP Time of Disposition: 18:03
[2025-03-17 17:44] VITALS: BP 111/68; PULSE 97; RESP 18; TEMP 36.7; O2SAT 100
--- OUTSIDE RECORDS SUMMARY | 2025-03-17 17:46 | XMS_ITS ---
Author Organization [facility] [place] at the [facility] Address [address] [place] [address] Care Team Providers Care Shirt Folding Machine Operator Name Role Phone Janet Hickman Primary Care Provider [phone] Brady Ramachandran MD Unavailable [phone] Nata Mar RN Unavailable Unavailable Wing Pritchard [facility] Unavailable Unavaila ble Home Infusion Status:Enrolled (Active) Start date:10/13/2024 Enrollment date:10/13/2024 Related service episodes:[facility] [employer] [employer] - INFLECTRA 400 mg IV EVERY 8 WEEKS (Active) Overview Cutover Complete Tosha Simmons 10/28/2024 3:06 PM Case Team Name Relationship Phone Nata Mar RN(Responsible Staff) Home Infu simba Nursing Continued Care and Services Coordination
--- OUTSIDE RECORDS SUMMARY | 2025-03-17 17:46 | XMS_ITS | Clinical Summary ---
Author Organization [facility] at the [facility] [place] Address [address] [place] [address] Care Team Providers Care Corn Shredder Name Role Phone Janet Hickman Primary Care Provider [phone] Brady Ramachandran MD Unavailable [phone] Nata Mar RN Unavailable Unavailable [facility] Unavailable Unavaila ble Allergies Active Allergy Reactions [...] via Pole-Mounted pump at 250ml/hr 240 mL 02/13/2025 11:59 PM CDT 5 026 Active sodium chloride 0.9% flush syringeIndicatio ns:Crohn's disease of both small and large intestine without complication (HCC) Infuse 10 mL IV as needed for line care 1000 mL 5 026 Active acetaminophen (TYLENOL) 325 mg tabletIndication s:Crohn's disease of both small and large intestine without complication (HCC) Take 2 tablets (650 mg total) by mouth every 8 (eight) weeks Take 30 minutes prior to infusion 12 tablet 02/13/2025 11:59 PM CDT 5 026 Active diphenhydrAMINE (BENADRYL) 25 mg capsuleIndicatio ns:Crohn's disease of both small and large intestine without complication (HCC) Take 1 tablet/capsule (25 mg total) by mouth every 8 (eight) weeks Take 30 minutes prior to infusion. 6 tablet/capsu le 02/13/2025 11:59 PM CDT 5 026 Active 0.9 % sodium chloride (sodium chloride 0.9%) infusionIndicati ons:Crohn's disease of both small and large intestine without complication (HCC) Infuse 250 mL IV every 8 (eight) weeks Use as IVPB bag for inFLIXimab infusion 1500 mL 02/13/2025 11:59 PM CDT 5 026 Active Active Problems Problem Noted Date Diagnosed Date [...] -we will refer to [facility] at [facility], patient will likely need be started [...] 10/16/2022 12/25/2022 Nausea and vomiting 10/16/2022 12/26/19 Encounters Date Type Department Care Team Description 02/19/2025 4:14 PM CDT - 02/19/2025 11:59 PM CDT Hospital Encounter [facility] [address] [place] [address] Crohn's disease of both small and large intestine without complication (HCC); High risk medications (not anticoagulants) long-term use; Routine health maintenance Discharge Disposition: Discharge to home or self care 02/19/2025 1:30 PM CDT Home Care Visit [facility] Home Infusion Therapy [address] [place] [address] Nata Mar RN MD INF [address] ROUTINE 01/30/2025 Home Infusion [facility] Home Infusion Therapy [address] [place] [address] Roel Cabrera CPhT 01/14/2025 Home Infusion [facility] Home Infusion Therapy [address] [place] [address] [facility] 01/05/2025 Telephone [facility] Medicine Gastroenterology [address] [facility] [address] [place] [address] [place] [id number] Montserrat Bruce, FAN BLADE ALIGNER GI Symptoms 12/30/2024 9:20 AM CDT - 12/30/2024 11:59 PM CDT Hospital Encounter [address] [address] Discharge Disposition: Discharge to home or self care 12/30/2024 9:00 AM CDT Home Care Visit [facility] Home Infusion Therapy [address] [place] [address] Nata Mar RN MD INF [address] ROUTINE 12/29/2024 Home Infusion [facility] Home Infusion Therapy [address] [place] [address] [facility] from Last 3 Months Immunizations Immunization Administration [...] isolatio n Never 09/10/2024 Social Connection and Isolation Panel Answer Date Recorded In a typical week, how many times do you talk on the phone with family, friends, or neighbors? More than three times a week 10/17/2022 How often do you get togethe r with friends or relatives? More than three times a week 10/17/2022 How often do you attend chur ch or congregation services? Never 10/17/2022 Do you belong to any clubs o r organizations such as druze groups, unions, fraternal or athletic groups, or [...] place to sleep or slept in a mcc (including now)? No 10/17/2022 Personal Safety Answer [...] Sign Reading Time Taken Comments Blood Pressure 108/60 02/19/2025 3:40 PM CDT Pulse 55 02/19/2025 3:40 PM CDT Temperature 37 C (98.6 F) 02/19/2025 1:45 PM CDT Respiratory Rate 16 02/19/2025 3:40 PM CDT Oxygen Saturation 100% 02/19/2025 3:40 PM CDT Inhaled Oxygen Concentration - - Weight 80.7 kg (178 lb) 02/19/2025 1:45 PM CDT Height 177.8 cm (5' 10) 02/19/2025 1:45 PM CDT Body Mass Index 25.54 02/19/2025 1:45 PM CDT Plan of Treatment Health Maintenance Due Date Last Done Comments Hepatitis C Screening 1995 Regular Well Visit/Exam 18-64 2013 Pneumococcal vaccine <65 (1 of 2 - PCV) 2014 Zoster Vaccine (1 of 2) 2014 HPV Vaccines (1 - 3-dose SCD M series) 2022 Depression Screening 10/17/2023 10/16/2022, 09/06/19 Influenza Vaccine (#1) 2025 DTaP/Tdap/Td Vaccine (8 - Td or Tdap) 08/24/2032 08/24/2022, 09/21/2009, 12/03/2000, Additional history exists Varicella Vaccines Completed 11/29/2009, 09/01/1996 Hepatitis B Screening Completed 12/12/2023 , 04/05/1996, 1995, Additional history exists Medical Devices Implanted Type Area Production Team Advisor Device Identifier Shelf Expiration Date Model / Serial / Lot Prezma Neuragen 4mm 3cm Semipermeable Peripheral Guide Nerve Bovine [id number] - [id number] Implanted:Qty: 1 on 10/05/2022 by Jose F Ellison MD at [facility] Prezma [id number] / / [id number] Procedures Procedure Name Priority Date/Time Associated Diagnosis Comments INFLIXIMAB LEVEL Routine 02/19/2025 4:14 PM CDT Crohn's disease of both small and large intestine without complication (HCC) High risk medications (not anticoagulants) long-term use Routine health maintenance T-SPOT.TB Routine 12/30/2024 9:20 AM CDT from Last 3 Months Results * Infliximab level (02/19/2025 4:14 PM CDT) Infliximab 6.7 mcg/mL [place] [facility] Comment: REFERENCE VALUE Limit of Quantitation = 1.0 mcg/mL Infliximab interp See Footnote [facility] Comment: For clinical assessment of response to therapy, infliximab should be measured at trough. When infliximab trough concentrations are greater than 5.0 mcg/mL, clinically relevant [id number] are unlikely and reflex testing will not be performed. ADDITIONAL INFORMATION This test was developed and its performance characteristics determined by [facility] in a manner consistent with CLIA requirements. This test has not been cleared or approved by the U.S. Food and Drug Administration. Test Performed by: [facility] [address] [place] [address] It Risk And Assurance Manager: Monika Ingram Ph.D.; CLIA# [id number] Blood 02/19/2025 4:14 PM CDT 02/19/2025 5:25 PM CDT us Brady Ramachandran MD LAB BLOOD ORDERABLES F inal Result [facility] [place] [address] [place] ref [facility] * T-SPOT.TB Blood (12/30/2024 9:20 AM CDT) [facility] T-SPOT.TB Negative [facility] Comment: Normal Value: Negative A negative test result does not exclude the possibility of exposure to or infection with Mycobacterium tuberculosis (M. tuberculosis). Patients with recent exposure to TB infected individuals exhibiting a negative T-SPOT.TB result should be considered for retesting within 6 weeks or if other relevant clinical symptoms indicate. Results from T-SPOT.TB testing must be used in conjunction with each individual's epidemiological history, current medical status, and results of other diagnostic evaluations. The T-SPOT.TB test is qualitative and results are reported as positive, borderline or negative, given that the test controls perform as expected. In line with the Centers for Disease Control and Prevention's 2010 recommendation to report quantitative measurements alongside the qualitative result, the laboratory provides spot counts for informational purposes only. The T-SPOT.TB test should not be interpreted as a quantitative test. T-SPOT.TB Panel A Spot Count 0 [facility] T-SPOT.TB Panel B Spot Count 0 [facility] CH T-SPOT.TB Negative Control Passed [facility] T-SPOT.TB Positive Control Passed [facility] Comment: Test Performed at: [email or web address] TB, [email or web address] [address] [place] [id number] GENI GUZMAN,PHD Blood 12/30/2024 9:20 AM CDT 12/30/2024 3:37 PM CDT Brady Ramachandran MD LAB MICROBIOLOGY - GEN ERAL ORDERABLES Final Result [facility] [id number] [place] [address] from Last 3 Months Insurance [facility] OPEN ACCESS [facility] HMO/PPO Address: [address] [address] [place] [address] [employer] ASSIST [facility] HMO/PPO Address: [facility] [address] [place] [address] [employer] INSURANCE WORK[employer] COMPENSATION GENERIC [employer]ANCE WORK[employer] COMPENSATION GENERIC WORKERS COMPENSATION GENERIC Advance Directives For more information, please contact: [phone] * Full Code (Latest Code Status on File) Date Activated Date Inactivated Comments 04/22/2024 10:07 AM 04/22/2024 3:59 PM * Full Code Date Activated Date Inactivated Comments 10/20/2022 1:29 PM 10/22/2022 6:36 PM * Full Code Date Activated Date Inactivated Comments 10/16/2022 9:35 PM 10/20/2022 1:29 PM Care Teams Corn Shredder Relationship Specialty Start Date End Date Janet Hickman PA PCP - General Family Medicine 09/05/22 Brady Ramachandran MD [address] [place] [address] PCP - Home Infusion Attending Gastroenterology 10/28/24 Nata Mar, RN Home Infusion Nursing 11/03/24 [facility], [facility] Pharmacist Pharmacy 11/16/24
--- OUTSIDE RECORDS SUMMARY | 2025-03-17 17:46 | XMS_ITS | Clinical Summary ---
Author Organization [facility] Address [facility] [place] [address] Care Team Providers Care Disassembler Product Name Role Phone Janet Hickman PA-C Primary Care Provider [phone] Allergies Active Allergy Reactions Criticality Noted Date [...] Date Last Done Comments Annual Physical 1998 HPV Vaccines (1 - 3-dose SCDM series) 2022 COVID-19 Vaccine ( - 2023- season) 2025 Influenza Adult (#1) 2025 DTaP, Tdap and Td Vaccines (8 - Td or Tdap) 08/24/2032 08/24/2022, 09/21/2009, 12/03/2000, Additional history exists Hepatitis B Vaccines Completed 04/05/1996, 1995, 1995 Hepatitis C Completed 12/12/2023, 12/12/2023 Meningococcal B Vaccine Aged Out No l [...] patient's age to complete this topic Insurance [employer] Care Teams Disassembler Product Relationship Specialty Start Date End Date Janet Hickman PA-C [address] [place] [address] PCP - General PHYSICIAN INDUSTRIAL ECOLOGIST 10/16/22
--- OUTSIDE RECORDS SUMMARY | 2025-03-17 17:46 | XMS_ITS ---
Author Organization [facility] at the [facility] Address [address] [place] [address] Care Team Providers Care Ship Engineer Name Role Phone Janet Hickman Primary Care Provider [phone] Brady Ramachandran MD Unavailable [phone] Nata Mar RN Unavailable Unavailable [facility] Unavailable Unavaila ble [facility] - INFLECTRA 400 mg IV EVERY 8 WEEKS Status:Enrolled (Active) Start date:10/13/2024 Enrollment date:10/13/2024 Linked medications:infliximab-dyyb (Active) Related program episode:Home Infusion (Active) Overview Cutover Complete Case Team Name Relationship Phone Nata Mar RN Home Infusion Nursing [facility](Responsible Staff) Pharma cist Continued Care and Services Coordination This section includes services coordinated for [facility] - INFLECTRA 400 mg IV EVERY8 WEEKS. Home Medical Care Name Services Phone [facility] Home Infusion Therapy Home Infusion and Inje ction
== END 2025-03-17 18:05 | disposition home or self-care (01) ==
PROVIDERS: Emergency Provider Nurse Practitioner
DX: L25.9 Unspecified contact dermatitis, unspecified cause (principal); F17.200 Nicotine dependence, unspecified, uncomplicated
CPT/HCPCS: 99213; G0463